=== PATIENT | male | born 1985 | race Caucasian/White ===

== ENCOUNTER 2018-01-30 09:21 | Emergency (ER) | payer BC, SELFPAY ==
[2018-01-30 09:26] VITALS: BP 156/80; PULSE 69; RESP 17; TEMP 35.9; O2SAT 98
[2018-01-30] MEDS: Ketorolac 15 MG/ML VIAL IVP (09:48)
[2018-01-30 09:53] LABS: Bilirubin Negative (Negative); Blood Trace-intact (Negative); Clarity Clear; Glucose Negative (Negative); Ketones Negative (Negative); Leukocyte Esterase Negative (Negative); Nitrite Negative (Negative); Specific Gravity 1.025 (1.005-1.025); Urobilinogen 0.2 EU/dL (Up TO 0.2); pH 5.5 (5-8)
--- NOTE | 2018-01-30 09:55 | ED.GENADUL_ITS ---
Discharge Plan Disposition Patient Disposition: HOME Condition: Stable Discharge Details Chief Complaint: FlankPain Clinical Impression: Renal colic on right side Primary Care Provider: Blaise Abdi ED Provider: Chu Waterman Home Meds and New Rx's Prescriptions: No Action No Known Home Meds RF: 0 Discharge Instructions Instructions: Renal Colic (ED) Additional Instructions: follow up with Dr. Rey's office if you have uncontrolled pain, fevers or persistent vomit return to the emergency department Discharge Data Discharge Physician: Chu Waterman Medical Decision Making MDM Narrative Medical decision making narrative: 32 yo male with hx of kidney stones comes in with right flank pain that started this morning. He states last week he passed a stone and was having pain on the left side but has not had pain since. He denies vomit, fevers, difficulty urinating or abdominal pain. He has no tenderness in the abdomen on exam. I suspect he has a kidney stone, will treat his pain and obtain UA, will try to avoid ct given he has known kidney stones. No fevers and appears well systemically so doubt sepsis or pyelo pt states pain is now gone and feels comfortable being d/c'd. I advised f/u with urology and return precautions given. I offered prescription for oxycodone and zofran but he declined this Differential Diagnosis kidney stone, muscle spasm Lab Data Lab results reviewed: Yes I reviewed the patient's lab results. HPI General Mode of arrival: ambulatory . Date/Time Provider Initiated Documentation: 01/30/18 09:38 . Limitations to Documentation: no limitations . Information obtained by: patient . History of Present Illness 32 year old M presents to the emergency department with the chief complaint of right flank pain, described as moderate, with intensity rated at 6. Quality is described as stabbing, and is localized to the back. Patient reports no radiation. Patient started experiencing this hour(s) (3) and it has been constant. No relieving factors improve symptom(s), No exacerbating factors reported . Patient notes other (nausea). Patient did receive the following treatments prior to arrival, none Related Data Home Medications Medication Instructions Recorded Confirmed Unknown [No Known Home Meds] 01/30/18 01/30/18 Allergies Allergy/AdvReac Type Severity Reaction Status Date / Time No Known Allergies Allergy Unverified 12/10/16 15:11 General Stated Complaint: FlankPain ELVIE: 3 Review of Systems Review of Systems All systems reviewed & are unremarkable except as noted in HPI and below Constitutional Denies chills, Denies fever(s) and Denies weakness Eyes Patient Denies loss of vision ENT Denies change in voice Cardiovascular Denies chest pain and Denies dyspnea Respiratory Denies dyspnea Gastrointestinal Denies abdominal pain and Denies nausea Genitourinary Denies dysuria Musculoskeletal Denies joint swelling Integumentary/Breasts Denies rash Neurologic Denies loss of vision and Denies weakness Psychiatric Denies depression Endocrine Denies cold intolerance and Denies heat intolerance Allergic/Immunologic Reports urticaria PFSH Social History Smoking/Tobacco Use Status: Never Exam Const General: no acute distress Orientation: alert HENMT Head: normal to inspection Ears: external ears normal General nose exam: external nose normal Mouth: moist mucous membranes Eyes General: appearance normal, both eyes and all related structures Neck Neck: normal visual inspection Resp Effort & Inspection: normal respiratory effort and able to speak in complete sentences Cardio Rate: regular rate Back/Spine/Pelvis Back: no CVA tenderness Thoracic/Lumbar Spine: thoracic and lumbar spine normal to inspection and other (no tenderness) Skin General skin exam: no rashes or lesions noted Neuro General: alert and oriented x3 Extrem General: normal to inspection Psych Mental Status: mental status grossly normal Course Vital Signs Temperature 35.9 C L 01/30/18 09:26 Pulse 69 01/30/18 09:26 Respiratory Rate 17 01/30/18 09:26 Blood Pressure 156/80 H 01/30/18 09:26 Pulse Oximetry 98 01/30/18 09:26 Temperature 35.9 C L 01/30/18 09:26 Pulse 69 01/30/18 09:26 Respiratory Rate 17 01/30/18 09:26 Blood Pressure 156/80 H 01/30/18 09:26 Pulse Oximetry 98 01/30/18 09:26
[2018-01-30] MEDS: MORPHine 10 MG/ML VIAL 4 MG IVP (10:00)
[2018-01-30 10:04] LABS: Bacteria Negative HPF (Negative); C & S Indicated? No; Casts 0-2 Hyaline LPF (Negative); Crystals Negative HPF (Negative); Epithelial Cells Moderate HPF (Negative); Mucus Moderate (Negative); WBC 0-2 HPF (0-5)
[2018-01-30 10:08] LABS: Abs Immature Grans 0.02 k/cumm (0.0-0.09); Absolute Basophil Count 0.03 k/cumm (0.0-0.2); Absolute Eosinophil Count 0.15 k/cumm (0.0-0.7); Absolute Lymphocyte Count 2.18 k/cumm (1.2-3.4); Absolute Monocyte Count 0.57 k/cumm (0.11-0.7); Absolute Neutrophil Count 5.72 k/cumm (1.2-6.7); Basophils % 0.3; Eosinophils % 1.7; HCT 45.6 % (40.0-50.0); HGB 15.1 g/dL (13.5-17.5); Immature Grans % 0.2; Lymphocytes % 25.1; Mean Corp. HGB Concentration 33.1 g/dL (32.0-36.0); Mean Corpuscular Hemoglobin 28.1 pg (27.0-33.0); Mean Corpuscular Volume 84.9 fL (80-95); Mean Platelet Volume 11.7 fL (8.0-11.0); Monocytes % 6.6; Neutrophils % 66.1; Platelet Count 223 x1000/uL (130-400); RBC 5.37 m/cumm (4.50-6.00); RBC Distribution Width 13.8 % (11.8-14.1); White Blood Cell Count 8.67 k/cumm (4.4-10.8)
[2018-01-30 10:16] LABS: ALT 128 U/L (12-78); AST 62 U/L (15-37); Albumin 3.7 g/dL (3.4-5.0); Alkaline Phosphatase 80 U/L (46-116); Anion Gap 8.9 mmol/L (3-11); BUN 18 mg/dL (7-18); Bilirubin, Total 0.5 mg/dL (0.2-1.0); CO2 27.1 mmol/L (21.0-32.0); CREATININE 1.17 mg/dL (0.70-1.30); Calcium 8.6 mg/dL (8.5-10.1); Chloride 104 mmol/L (98-107); Glucose 125 mg/dL (70-100); Potassium 4.4 mmol/L (3.5-5.1); Sodium 140 mmol/L (136-145); Total Protein 7.9 g/dL (6.4-8.2)
== END 2018-01-30 10:43 | disposition home or self-care (01) ==
PROVIDERS: Emergency Provider Emergency Medicine; PCP Physician Assistant Medical
DX: N23 Unspecified renal colic (principal); R10.31 Right lower quadrant pain; Z87.442 Personal history of urinary calculi
CPT/HCPCS: 36415; 80053; 96374; 96375; 99284; 81003; 81015; 85025; J1885; J2270

== ENCOUNTER 2018-04-03 04:06 | Emergency (ER) | payer BC, SELFPAY ==
[2018-04-03 04:10] VITALS: BP 170/108; PULSE 68; RESP 20; TEMP 36.4; O2SAT 98
[2018-04-03 04:19] LABS: Bilirubin Negative (Negative); Blood Small (Negative); Clarity Clear; Glucose Negative (Negative); Ketones Negative (Negative); Leukocyte Esterase Negative (Negative); Nitrite Negative (Negative); Specific Gravity 1.025 (1.005-1.025); Urobilinogen 0.2 EU/dL (Up TO 0.2)
--- NOTE | 2018-04-03 04:20 | W.ED.GENAD ---
Discharge Plan Disposition Patient Disposition: HOME Condition: Good Discharge Details Chief Complaint: FlankPain Clinical Impression: Renal colic on right side Primary Care Provider: Blaise Abdi ED Provider: Flo Xiao Rhodelia Meds and New Rx's Prescriptions: New tamsulosin 0.4 mg capsule 0.4 mg PO DAILY Qty: 14 RF: 0 phenazopyridine 100 mg tablet 100 mg PO TID PRN (Reason: pain) 0 Days RF: 0 ibuprofen 600 mg tablet 600 mg PO QID PRN (Reason: pain) Qty: 20 RF: 0 Discharge Instructions Instructions: Renal Colic (ED) Additional Instructions: Medication as prescribed. Plenty of fluids. Follow-up with Dr. Rey next week. Return to ED for fever, vomiting, worsening pain. Referrals: Brandon Rey MD [ [facility] STAFF PHYSICIAN] - Medical Decision Making Patient here with right-sided flank pain exactly like previous kidney stones. Pain woke him up about an hour ago. He has had previous scans and ultrasounds here. He has never had to have a procedure. At this point we will get a urinalysis to rule out infection. He has no fever. We will symptomatically treat and hold off on labs or imaging for the time being. If he gets better relatively quickly we will simply treat his kidney stone and have him follow-up with Dr. Rey next week if he does not pass the stone. Patient's urine is not infected. He has got good pain relief and is much more comfortable. He does not want narcotics to go home with. Will take Motrin, Flomax, Pyridium and follow-up with Dr. Rey next week. Medical Records Medical records reviewed: Yes I reviewed the patient's medical records. HPI General Mode of arrival: ambulatory. Date/Time Provider Initiated Documentation: 04/03/18 04:14. Limitations to Documentation: no limitations. Information obtained by: patient. HPI Narrative: Patient presents with right flank pain. Patient has history of kidney stones almost always on the right. They have always passed on there own. He has never had procedures. This pain feels exactly the same as previous. Wraps around from the back to the flank to the front. He has no nausea/vomiting. He has no fever. He does have urgency and frequency. Pain just started about an hour ago. Related Data Home Medications Medication Instructions Recorded Confirmed ibuprofen 600 mg PO QID PRN #20 tab 04/03/18 phenazopyridine 100 mg PO TID PRN 0 Days tab 04/03/18 tamsulosin 0.4 mg PO DAILY #14 cap 04/03/18 Previous Rx's Medication Instructions Recorded ibuprofen 600 mg PO QID PRN #20 tab 04/03/18 phenazopyridine 100 mg PO TID PRN 0 Days tab 04/03/18 tamsulosin 0.4 mg PO DAILY #14 cap 04/03/18 Allergies Allergy/AdvReac Type Severity Reaction Status Date / Time No Known Allergies Allergy Unverified 04/03/18 04:17 General Stated Complaint: FlankPain ELVIE: 3 Review of Systems Constitutional Denies chills, Denies fever(s), Denies headache(s) and Denies weakness ENT Denies headache(s) Cardiovascular Denies chest pain, Denies edema, Denies leg edema, Denies palpitations and Denies dyspnea Respiratory Denies cough and Denies dyspnea Gastrointestinal Reports abdominal pain, Denies diarrhea, Denies nausea and Denies vomiting Genitourinary Denies hematuria, Denies dysuria, Reports flank pain, Denies scrotal swelling, Denies testicular pain, Reports urinary frequency and Reports urinary urgency Musculoskeletal Denies abnormal gait, Reports back pain and Denies numbness Integumentary/Breasts Denies rash Neurologic Denies abnormal speech, Denies abnormal gait, Denies confusion, Denies headache(s), Denies focal weakness, Denies numbness and Denies weakness Psychiatric Denies confusion Endocrine Denies palpitations Exam Const General: cooperative, uncomfortable and in distress Orientation: alert and oriented x3 [facility] Head: normocephalic and atraumatic Neck Neck: normal visual inspection, trachea midline and supple Resp Effort & Inspection: normal respiratory effort GI Palpation: soft, not firm, no guarding and nontender Back/Spine/Pelvis Back: no CVA tenderness Skin General skin exam: other (warm and dry) Neuro General: alert, oriented x3, gait normal, no focal motor deficits and CN's II-XI intact bilaterally Course Vital Signs Temperature 97.5 F L 04/03/18 04:10 Pulse 68 04/03/18 04:10 Respiratory Rate 20 04/03/18 04:10 Blood Pressure 170/108 H 04/03/18 04:10 Pulse Oximetry 98 04/03/18 04:10 Temperature 97.5 F L 04/03/18 04:10 Pulse 68 04/03/18 04:10 Respiratory Rate 20 04/03/18 04:10 Respiratory Effort Non-Labored 04/03/18 04:17 Blood Pressure 170/108 H 04/03/18 04:10 Pulse Oximetry 98 04/03/18 04:10 Oxygen Delivery Method Room Air 04/03/18 04:10 Oxygen Flow Rate 0 04/03/18 04:10 Pain Level 9 04/03/18 04:18
[2018-04-03 04:29] LABS: Bacteria Negative HPF (Negative); C & S Indicated? No; Casts Negative LPF (Negative); Crystals Negative HPF (Negative); Epithelial Cells Few HPF (Negative); Mucus Negative (Negative); WBC 0-2 HPF (0-5)
[2018-04-03] MEDS: Phenazopyridine 100 MG TAB PO (04:33)
[2018-04-03] MEDS: Tamsulosin 0.4 MG CAPCR PO (04:33)
[2018-04-03] MEDS: Ketorolac 30 MG/ML VIAL IM (04:34)
[2018-04-03] MEDS: HYDROmorphone 2 MG/ML VIAL 0.5 MG IM (04:34)
--- NOTE | 2018-04-03 04:36 | ED.GENADUL_ITS ---
Discharge Plan Disposition Patient Disposition: HOME Condition: Good Discharge Details Chief Complaint: FlankPain Clinical Impression: Renal colic on right side Primary Care Provider: Blaise Abdi ED Provider: Flo Xiao [place] Meds and New Rx's Prescriptions: New tamsulosin 0.4 mg capsule 0.4 mg PO DAILY Qty: 14 RF: 0 phenazopyridine 100 mg tablet 100 mg PO TID PRN (Reason: pain) 0 Days RF: 0 ibuprofen 600 mg tablet 600 mg PO QID PRN (Reason: pain) Qty: 20 RF: 0 Discharge Instructions Instructions: Renal Colic (ED) Additional Instructions: Medication as prescribed. Plenty of fluids. Follow-up with Dr. Rey next week. Return to ED for fever, vomiting, worsening pain. Referrals: Brandon Rey MD [ [facility] STAFF PHYSICIAN] - Medical Decision Making Patient here with right-sided flank pain exactly like previous kidney stones. Pain woke him up about an hour ago. He has had previous scans and ultrasounds here. He has never had to have a procedure. At this point we will get a urinalysis to rule out infection. He has no fever. We will symptomatically treat and hold off on labs or imaging for the time being. If he gets better relatively quickly we will simply treat his kidney stone and have him follow-up with Dr. Rey next week if he does not pass the stone. Patient's urine is not infected. He has got good pain relief and is much more comfortable. He does not want narcotics to go home with. Will take Motrin, Flomax, Pyridium and follow-up with Dr. Rey next week. Medical Records Medical records reviewed: Yes I reviewed the patient's medical records. HPI General Mode of arrival: ambulatory . Date/Time Provider Initiated Documentation: 04/03/18 04:14 . Limitations to Documentation: no limitations . Information obtained by: patient . HPI Narrative: Patient presents with right flank pain. Patient has history of kidney stones almost always on the right. They have always passed on there own. He has never had procedures. This pain feels exactly the same as previous. Wraps around from the back to the flank to the front. He has no nausea/vomiting. He has no fever. He does have urgency and frequency. Pain just started about an hour ago. Related Data Home Medications Medication Instructions Recorded Confirmed ibuprofen 600 mg PO QID PRN #20 tab 04/03/18 phenazopyridine 100 mg PO TID PRN 0 Days tab 04/03/18 tamsulosin 0.4 mg PO DAILY #14 cap 04/03/18 Previous Rx's Medication Instructions Recorded ibuprofen 600 mg PO QID PRN #20 tab 04/03/18 phenazopyridine 100 mg PO TID PRN 0 Days tab 04/03/18 tamsulosin 0.4 mg PO DAILY #14 cap 04/03/18 Allergies Allergy/AdvReac Type Severity Reaction Status Date / Time No Known Allergies Allergy Unverified 04/03/18 04:17 General Stated Complaint: FlankPain ELVIE: 3 Review of Systems Constitutional Denies chills, Denies fever(s), Denies headache(s) and Denies weakness ENT Denies headache(s) Cardiovascular Denies chest pain, Denies edema, Denies leg edema, Denies palpitations and Denies dyspnea Respiratory Denies cough and Denies dyspnea Gastrointestinal Reports abdominal pain, Denies diarrhea, Denies nausea and Denies vomiting Genitourinary Denies hematuria, Denies dysuria, Reports flank pain, Denies scrotal swelling, Denies testicular pain, Reports urinary frequency and Reports urinary urgency Musculoskeletal Denies abnormal gait, Reports back pain and Denies numbness Integumentary/Breasts Denies rash Neurologic Denies abnormal speech, Denies abnormal gait, Denies confusion, Denies headache( s), Denies focal weakness, Denies numbness and Denies weakness Psychiatric Denies confusion Endocrine Denies palpitations Exam Const General: cooperative, uncomfortable and in distress Orientation: alert and oriented x3 [facility] Head: normocephalic and atraumatic Neck Neck: normal visual inspection, trachea midline and supple Resp Effort & Inspection: normal respiratory effort GI Palpation: soft, not firm, no guarding and nontender Back/Spine/Pelvis Back: no CVA tenderness Skin General skin exam: other (warm and dry) Neuro General: alert, oriented x3, gait normal, no focal motor deficits and CN's II- XI intact bilaterally Course Vital Signs Temperature 97.5 F L 04/03/18 04:10 Pulse 68 04/03/18 04:10 Respiratory Rate 20 04/03/18 04:10 Blood Pressure 170/108 H 04/03/18 04:10 Pulse Oximetry 98 04/03/18 04:10 Temperature 97.5 F L 04/03/18 04:10 Pulse 68 04/03/18 04:10 Respiratory Rate 20 04/03/18 04:10 Respiratory Effort Non-Labored 04/03/18 04:17 Blood Pressure 170/108 H 04/03/18 04:10 Pulse Oximetry 98 04/03/18 04:10 Oxygen Delivery Method Room Air 04/03/18 04:10 Oxygen Flow Rate 0 04/03/18 04:10 Pain Level 9 04/03/18 04:18
[2018-04-03 05:42] VITALS: BP 114/66; PULSE 68; RESP 18; TEMP 36.7; O2SAT 98
== END 2018-04-03 05:42 | disposition home or self-care (01) ==
PROVIDERS: Emergency Provider Emergency Medicine; PCP Physician Assistant Medical
DX: N23 Unspecified renal colic (principal); Z87.442 Personal history of urinary calculi
CPT/HCPCS: 96372; 99284; 81003; 81015; J1885

== ENCOUNTER 2018-05-09 08:55 | Emergency (ER) | payer BC, SELFPAY ==
[2018-05-09 09:02] VITALS: BP 120/74; PULSE 92; RESP 16; TEMP 37.3; O2SAT 93
--- NOTE | 2018-05-09 09:12 | DI.RAD_ITS ---
SYMPTOM/DIAGNOSIS: COUGH PA AND LATERAL CHEST: The heart is normal in size. The lungs are clear. The mediastinal structures and pleura appear intact. CONCLUSION: Normal chest. No evidence of acute cardiopulmonary disease.
--- NOTE | 2018-05-09 09:17 | ED.GENADUL_ITS ---
Discharge Plan Disposition Patient Disposition: HOME Condition: Good Discharge Details Chief Complaint: Fever Clinical Impression: Influenza, Transaminitis Primary Care Provider: Blaise Abdi ED Provider: Fabio Mejia Home Meds and New Rx's Prescriptions: New oseltamivir 75 mg capsule 75 mg PO BID 5 Days Qty: 10 RF: 0 No Action ibuprofen 600 mg tablet 600 mg PO QID PRN (Reason: pain) Qty: 20 RF: 0 diphenhydramine-acetaminophen [Tylenol PM Extra Strength] 25-500 mg Tablet 1 tab PO HS RF: 0 Discharge Instructions Instructions: Influenza (ED) Additional Instructions: Please follow-up with your primary care provider for reevaluation of your elevated liver function tests. If you notice any worsening of your symptoms, or any new symptoms such as vomiting, diarrhea, fever, chills, shortness of breath, chest pain, numbness, weakness, or fainting , please return immediately to the emergency department for reevaluation. Please follow up with your primary care provider as soon as possible for reassessment and reevaluation. As always, it was a pleasure participating in your medical care today. Referrals: Blaise Abdi PA [Primary Care Provider] - Medical Decision Making This is a 32-year-old male with no significant past medical history who presents today with 2 days of fever, chills, cough, mild nausea vomiting and diarrhea. He has no red flags for the diarrhea. Abdominal exam demonstrates no abdominal tenderness. Lung sounds are clear. Patient is mildly tachycardic, but afebrile here. We will rehydrate the patient, evaluate for influenza. We will give Toradol and Decadron. I feel that the patient would be a good candidate for discharge home following workup if it is benign. 9:51 AM Patient's laboratory workup has resulted and is mainly benign. No evidence of an elevated white count, no significant bandemia. Influenza is positive which definitely correlates well with his current clinical picture. The patient's AST and ALT are also slightly elevated. Review of the patient's previous labs demonstrate elevation in the past but not this high before. With no significant abdominal pain, no right upper quadrant pain, normal bilirubin, I do feel that it may be the viral component of his influenza that is influencing his mild transaminitis. We will recommend close follow-up with his PCP for this. Avoiding alcohol, and avoiding acetaminophen. We will give him his first dose of Tamiflu here since his presentation has been within 48 hours of initial symptom onset. We discussed red flags which to return the patient understands. I have extensively reviewed the treatment plan and discharge instructions with the patient. I have addressed all patient concerns at this time. The patient was made aware of what symptoms to monitor for that would warrant a return to the emergency department. Discussed the plan with the patient, they demonstrate verbal understanding and agreement with our assessment and plan at this time. I did review the chest x-ray and I see no evidence of acute pneumonia. HPI General Date/Time Provider Initiated Documentation: 05/09/18 09:11 . HPI Narrative: This is a 32-year-old male who presents today for evaluation of cough, fever, chills, nausea, vomiting and diarrhea. Patient states that for the last 2 days he has had these symptoms. His vomiting is usually posttussive. He denies any chest pain or shortness of breath. He does not smoke. The cough is nonproductive. T-max is 103 yesterday. He has not taken any antipyretics since 7 PM last night. He denies any bloody diarrhea, recent foreign travel, recent antibiotic use. Patient denies any other complaints at this time. He is a non-smoker. Related Data Home Medications Medication Instructions Recorded Confirmed ibuprofen 600 mg PO QID PRN #20 tab 04/03/18 05/09/18 diphenhydramine-acetaminophen 1 tab PO HS 05/09/18 05/09/18 [Tylenol PM Extra Strength] oseltamivir 75 mg PO BID 5 Days #10 cap 05/09/18 Previous Rx's Medication Instructions Recorded ibuprofen 600 mg PO QID PRN #20 tab 04/03/18 oseltamivir 75 mg PO BID 5 Days #10 cap 05/09/18 Allergies Allergy/AdvReac Type Severity Reaction Status Date / Time No Known Allergies Allergy Unverified 05/09/18 09:07 General Stated Complaint: Fever ELVIE: 3 Review of Systems Review of Systems All systems reviewed & are unremarkable except as noted in HPI and below PFSH Social History Smoking/Tobacco Use Status: Never Exam Narrative Exam Narrative: 1.Const: Well-nourished, Well-developed, appearing stated age 2.Eyes: PERRL, no conjunctival injection, and symmetrical lids. 3.ENT: Atraumatic external nose and ears. Moist MM. Neck: Symmetric, trachea midline, No thyromegaly. 4.CVS: +S1/S2, No murmurs or gallops. Peripheral pulses 2+ and equal in all extremities. Brisk capillary refill in all extremities. 5.RESP: Unlabored respiratory effort. Clear to auscultation bilaterally. No wheezes rales or rhonchi 6.GI: Soft, Nontender/Nondistended, No hepatosplenomegaly. No guarding or rebound. 7.MSK: Normocephalic/Atraumatic, Extremities w/o deformity or ttp No cyanosis or clubbing, Normal movement of all extremities 8.Skin: Warm, Dry. No rashes or lesions. 9.Neuro: investigation division lieutenant II-XII grossly intact. Sensation grossly intact, no focal neurologic deficits. 10.Psych: (AAO) x3. Appropriate mood and affect Course Vital Signs Temperature 37.3 C 05/09/18 09:02 Pulse 92 H 05/09/18 09:02 Respiratory Rate 16 05/09/18 09:02 Blood Pressure 120/74 05/09/18 09:02 Pulse Oximetry 93 L 05/09/18 09:02 Temperature 37.3 C 05/09/18 09:02 Temperature Source Oral 05/09/18 09:02 Pulse 92 H 05/09/18 09:02 Respiratory Rate 16 05/09/18 09:02 Respiratory Effort 05/09/18 09:06 Blood Pressure 120/74 05/09/18 09:02 Blood Pressure Position Supine 05/09/18 09:02 Pulse Oximetry 93 L 05/09/18 09:02 Oxygen Delivery Method Room Air 05/09/18 09:02 Oxygen Flow Rate 0 05/09/18 09:02 Pain Level 6 05/09/18 09:02
[2018-05-09 09:25] LABS: Abs Immature Grans 0.01 k/cumm (0.0-0.09); Absolute Basophil Count 0.01 k/cumm (0.0-0.2); Absolute Eosinophil Count 0.01 k/cumm (0.0-0.7); Absolute Lymphocyte Count 1.07 k/cumm (1.2-3.4); Absolute Monocyte Count 1.04 k/cumm (0.11-0.7); Absolute Neutrophil Count 1.69 k/cumm (1.2-6.7); Basophils % 0.3; Eosinophils % 0.3; HCT 44.3 % (40.0-50.0); HGB 14.6 g/dL (13.5-17.5); Immature Grans % 0.3; Lymphocytes % 27.9; Mean Corpuscular Hemoglobin 28.3 pg (27.0-33.0); Mean Corpuscular Volume 85.9 fL (80-95); Mean Platelet Volume 11.2 fL (8.0-11.0); Monocytes % 27.2; Platelet Count 161 x1000/uL (130-400); RBC 5.16 m/cumm (4.50-6.00); RBC Distribution Width 14.4 % (11.8-14.1); White Blood Cell Count 3.83 k/cumm (4.4-10.8)
[2018-05-09] MEDS: Ketorolac 30 MG/ML VIAL IVP (09:25)
[2018-05-09] MEDS: Normal Saline 1,000 ML 1000 ML IV (09:26)
[2018-05-09] MEDS: Dexamethasone 10 MG/ML VIAL IVP (09:26)
[2018-05-09 09:42] LABS: ALT 266 U/L (12-78); AST 199 U/L (15-37); Albumin 3.3 g/dL (3.4-5.0); Alkaline Phosphatase 60 U/L (46-116); Anion Gap 5.9 mmol/L (3-11); BUN 16 mg/dL (7-18); Bilirubin, Total 0.4 mg/dL (0.2-1.0); CO2 29.1 mmol/L (21.0-32.0); CREATININE 1.12 mg/dL (0.70-1.30); Calcium 9.5 mg/dL (8.5-10.1); Chloride 101 mmol/L (98-107); Glucose 116 mg/dL (70-100); Potassium 3.9 mmol/L (3.5-5.1); Sodium 136 mmol/L (136-145); Total Protein 7.6 g/dL (6.4-8.2)
[2018-05-09] MEDS: Oseltamivir 75 MG CAP PO (09:49)
--- NOTE | 2018-05-09 10:20 | NUR.NOTE ---
patient IV dc'd, received discharge and dfollow up nstruction per MD order. Nursing Note:
== END 2018-05-09 10:22 | disposition home or self-care (01) ==
LOC: ER 10:26
PROVIDERS: Emergency Provider Student in an Organized Health Care Education/Training Program; PCP Physician Assistant Medical
DX: J10.1 Influenza due to other identified influenza virus with other respiratory manifestations (principal); R94.5 Abnormal results of liver function studies
CPT/HCPCS: 36415; 80053; 87449; 96361; 96374; 96375; 99284; 71046; 85025; 99283; J1100; J1885

== ENCOUNTER 2018-11-18 22:55 | Outpatient (REF) | payer BC, SELFPAY ==
[2018-11-18 22:38] LABS: ALT 101 U/L (12-78); AST 57 U/L (15-37); Albumin 3.7 g/dL (3.4-5.0); Alkaline Phosphatase 75 U/L (46-116); Bilirubin, Total 0.4 mg/dL (0.2-1.0); Total Protein 7.3 g/dL (6.4-8.2)
[2018-11-18 22:40] LABS: Hemoglobin A1C 6.7 % (4.5-6.2)
== END 2018-11-18 23:15 ==
LOC: NCHCN 22:55
PROVIDERS: PCP Physician Assistant Medical; Visit Provider Physician Assistant Medical
DX: R79.89 Other specified abnormal findings of blood chemistry (principal)
CPT/HCPCS: 80076; 83036

== ENCOUNTER 2019-05-03 08:23 | Observation (INO) | payer BC, SELFPAY ==
[2019-05-03] VITALS (60 sets, daily range): BP systolic 100–165; BP diastolic 64–124; PULSE 52–115; RESP 17–22; TEMP 36.2–36.5; O2SAT 89–98
--- NOTE | 2019-05-03 08:27 | ED.GENADUL_ITS ---
Discharge Plan Disposition Patient Disposition: HOME Condition: Good Discharge Details Chief Complaint: FlankPain Clinical Impression: Kidney stone, Pancreas cyst Primary Care Provider: Blaise Abdi ED Provider: Fabio Mejia Home Meds and New Rx's Prescriptions: New hydrocodone-acetaminophen [[place]] 10-325 mg tablet 1 tab PO Q6H PRN (Reason: pain) Qty: 14 RF: 0 No Action ibuprofen 600 mg tablet 600 mg PO QID PRN (Reason: pain) Qty: 20 RF: 0 diphenhydramine-acetaminophen [Tylenol PM Extra Strength] 25-500 mg Tablet 1 tab PO HS RF: 0 Discharge Instructions Instructions: Kidney Stones (ED) Additional Instructions: You have a 3.7 mm kidney stone. It is in the top part of the urine tube/ureter. It will likely take some time to pass. Please take the pain medications as needed. They have some Tylenol in them, so do not take them with Tylenol. Otherwise I would recommend taking 600 mg of ibuprofen every 6 hours and 1000 mg of Tylenol every 6 hours aside for when you take the [place]. If your symptoms persist and do not improve or resolve over the next few days, please return immediately as you may require a ureteral stent. Please follow-up closely with your primary care provider as well as Dr. Rey. At this time you are not a candidate for Flomax secondary to the position of the kidney stone. If you notice any worsening of your symptoms, or any new symptoms such as vomiting, diarrhea, fever, chills, shortness of breath, chest pain, numbness, weakness, or fainting , please return immediately to the emergency department for reevaluation. Please follow up with your primary care provider as soon as possible for reassessment and reevaluation. As always, it was a pleasure participating in your medical care today. Referrals: Brandon Rey MD [ [facility] STAFF PHYSICIAN] - Blaise Abdi PA [Primary Care Provider] - Medical Decision Making This is a pleasant 33-year-old male with a past medical history of kidney stones who presents today for evaluation of left flank pain that started last night which he states feels identical to previous kidney stones. Genital exam was unremarkable, vital signs are stable. He did have a slight atypical component where his pain did initially radiate to the right lower quadrant of the abdomen, however this is since resolved and he currently demonstrates no right lower quadrant abdominal tenderness at all. Signs and symptoms are inconsistent with acute appendicitis. Will get a CT scan to evaluate position and size of potential stone pathology, urinalysis to evaluate for infection, basic blood work to rule out acute kidney injury. We will rehydrate and treat his pain. 9:[address] scan has returned and demonstrates evidence of kidney stone at the proximal ureter. There is evidence of mild hydronephrosis. Kidney stone is only 3.7 mm. There is also evidence of a cystic structure in the body of the pancreas I did contact radiology and spoke with Dr. Medina, I did request that she review previous imaging, she has since done that and she states that it was present then as well but it was slightly smaller, only 1.3 cm at that time. Unlikely to be a neoplasm, especially with the chronicity of it with the last CT scan demonstrating it 2 years ago. However I will place it on his problem list, will copy his PCP, and recommend follow-up for potential MRI versus outpatient ultrasound. We will get a screening lipase. Patient does have mild transaminitis, however this is notably status quo with him, especially in comparison with multiple previous transaminases in the past. Pain is improving but certainly not controlled at this point. We will add Dilaudid, continue to monitor. If his pain resolves I feel he can be safely discharged with close follow-up. If his pain is not tolerable even after continued medications he may require brief 1224-hour observation for pain control. 10:21 AM Patient's pain is well controlled. Patient is requesting to go home. I do feel that this is certainly reasonable. Screening lipase was normal. Recommended continued close follow-up with his primary care provider about his pancreatic pseudocyst. We will give [place] for home use in addition to NSAIDs. Recommended not taking Tylenol with [place]. Discussed red flags which to return as well as importance of close follow-up. He will be going home with his mother. I have extensively reviewed the treatment plan and discharge instructions with the patient. I have addressed all patient concerns at this time. The patient was made aware of what symptoms to monitor for that would warrant a return to the emergency department. Discussed the plan with the patient, they demonstrate verbal understanding and agreement with our assessment and plan at this time. FINDINGS: Liver: Hepatic steatosis Gallbladder and bile ducts: Normal. No calcified stones. No ductal dilation. Pancreas: Cystic structure in the body of the pancreas 1.68 by 1.74 cm. Three Hounsfield units. Consistent with pancreatic cyst. Differential includes pancreatic pseudocyst and pancreatic cystic neoplasm. Spleen: Normal. No splenomegaly. Adrenals: Normal. No mass. Kidneys and ureters: 3.3 x 3.7 millimeter proximal LEFT ureteral calculus causes minimal dilatation of LEFT collecting system and LEFT ureter. The LEFT kidney is edematous. 2 cm right renal cyst Nonobstructing renal calculi bilaterally. Stomach and bowel: Unremarkable. No obstruction. No mucosal thickening. Appendix: No evidence of appendicitis. Intraperitoneal space: Unremarkable. No free air. No significant fluid collection. Vasculature: Unremarkable. No abdominal aortic aneurysm. Lymph nodes: Unremarkable. No enlarged lymph nodes. Bladder: Unremarkable as visualized. Reproductive: Unremarkable as visualized. Bones/joints: Unremarkable. No acute fracture. Soft tissues: Unremarkable. IMPRESSION: 1. 3.3 x 3.7 millimeter proximal LEFT ureteral calculus causes minimal dilatation of LEFT collecting system and LEFT ureter. The LEFT kidney is edematous. 2. Cystic structure in the body of the pancreas 1.68 by 1.74 cm. Three Hounsfield units. Consistent with pancreatic cyst. Differential includes pancreatic pseudocyst and pancreatic cystic neoplasm. 3. Nonobstructing renal calculi bilaterally. Thank you for allowing us to participate in the care of your patient. Dictated and Authenticated by: Wild Bennett MD 05/03/2019 9:18 AM Eastern Time ([place] & [place]) HPI General Date/Time Provider Initiated Documentation: 05/03/19 08:23 . HPI Narrative: This is a 33-year-old male with a past medical history of kidney stones who presents today for evaluation of left flank pain. Patient states that last night he had what he describes as a sudden sharp pain in his left flank that went down to the left lower and right lower groin. Throughout the evening this transition to just the left flank pain. Currently he has no lower abdominal pain, no groin pain, no scrotal pain. Or testicular pain. He does admit to dark or bloody urine this morning when he woke up. He states that his symptoms feel identical to his previous kidney stones in the past. He has not taken anything for the pain at this time. He denies any nausea vomiting or diarrhea. He denies any fever or chills. He denies any other complaints at this time. No other modifying factors. No history of AAA. He does still have his appendix. Related Data Home Medications Medication Instructions Recorded Confirmed ibuprofen 600 mg PO QID PRN #20 tab 04/03/18 05/03/19 diphenhydramine-acetaminophen 1 tab PO HS 05/09/18 05/03/19 [Tylenol PM Extra Strength] hydrocodone-acetaminophen [[place]] 1 tab PO Q6H PRN #14 tab 05/03/19 Previous Rx's Medication Instructions Recorded ibuprofen 600 mg PO QID PRN #20 tab 04/03/18 hydrocodone-acetaminophen [[place]] 1 tab PO Q6H PRN #14 tab 05/03/19 Allergies Allergy/AdvReac Type Severity Reaction Status Date / Time No Known Allergies Allergy Unverified 05/03/19 08:32 General ELVIE: 3 Review of Systems All systems reviewed & are unremarkable except as noted in HPI and below PFSH Social History Smoking/Tobacco Use Status: Never Alcohol Intake: current Alcohol Intake frequency: a few times a month Drug use: Never Substance use type: does not use Do you feel safe at home: Yes Do you feel safe in your relationship?: Yes Exam Narrative Exam Narrative: 1.Const: Well-nourished, Well-developed, appearing stated age 2.Eyes: PERRL, no conjunctival injection, and symmetrical lids. 3.ENT: Atraumatic external nose and ears. Moist MM. Neck: Symmetric, trachea midline, No thyromegaly. 4.CVS: +S1/S2, No murmurs or gallops. Peripheral pulses 2+ and equal in all extremities. Brisk capillary refill in all extremities. 5.RESP: Unlabored respiratory effort. Clear to auscultation bilaterally. No wheezes rales or rhonchi 6.GI: Soft, Nontender/Nondistended, No hepatosplenomegaly. No guarding or rebound. No pain or tenderness in the right or left lower abdominal quadrants. 7.MSK: Normocephalic/Atraumatic, Extremities w/o deformity or ttp No cyanosis or clubbing, Normal movement of all extremities. Mild subjective left flank tenderness not worsened or reproducible with palpation or percussion. Genital exam was performed with nurse at bedside, normal scrotal exam, normal nontender testicles bilaterally, normal circumcised penis. No abnormalities or bloody discharge. Normal cremasteric reflex. 8.Skin: Warm, Dry. No rashes or lesions. 9.Neuro: engineer technical staff II-XII grossly intact. Sensation grossly intact, no focal neurologic deficits. 10.Psych: (AAO) x3. Appropriate mood and affect
[2019-05-03 08:31] LABS: Bilirubin Negative (Negative); Blood Large (Negative); Clarity Sl Cloudy (Clear); Glucose Negative (Negative); Ketones Negative (Negative); Leukocyte Esterase Negative (Negative); Nitrite Negative (Negative); Specific Gravity 1.025 (1.005-1.025); Urobilinogen 0.2 EU/dL (Up TO 0.2); pH 5.5 (5-8)
[2019-05-03] MEDS: Ondansetron 4 MG/2 ML VIAL IVP ×2 (08:36→17:10)
[2019-05-03] MEDS: Ketorolac 30 MG/ML VIAL IVP ×3 (08:36→21:57)
[2019-05-03] MEDS: Acetaminophen 500 MG TAB 1000 MG PO (08:37)
[2019-05-03] MEDS: Normal Saline 1,000 ML 1000 ML IV (08:37)
[2019-05-03 08:46] LABS: Bacteria Many HPF (Negative); RBC >50 HPF (0-2)
[2019-05-03 08:47] LABS: C & S Indicated? Yes
[2019-05-03 08:48] LABS: Abs Immature Grans 0.03 k/cumm (0.0-0.09); Absolute Basophil Count 0.03 k/cumm (0.0-0.2); Absolute Eosinophil Count 0.31 k/cumm (0.0-0.7); Absolute Lymphocyte Count 2.65 k/cumm (1.2-3.4); Absolute Monocyte Count 0.73 k/cumm (0.11-0.7); Basophils % 0.3; Eosinophils % 3.5; HCT 44.7 % (40.0-50.0); HGB 14.5 g/dL (13.5-17.5); Immature Grans % 0.3; Lymphocytes % 29.6; Mean Corp. HGB Concentration 32.4 g/dL (32.0-36.0); Mean Corpuscular Hemoglobin 27.6 pg (27.0-33.0); Mean Corpuscular Volume 85.1 fL (80-95); Mean Platelet Volume 11.4 fL (8.0-11.0); Monocytes % 8.2; Neutrophils % 58.1; Platelet Count 245 x1000/uL (130-400); RBC 5.25 m/cumm (4.50-6.00); RBC Distribution Width 14.1 % (11.8-14.1); White Blood Cell Count 8.95 k/cumm (4.4-10.8)
--- NOTE | 2019-05-03 08:52 | DI.CT_ITS ---
EXAM: CT RENAL COLIC WO CLINICAL HISTORY: FLANK PAIN. TECHNIQUE: Imaging Protocol: Axial computed tomography images with coronal and sagittal reformatted images were created and reviewed. CONTRAST MATERIAL: Intravenous: Omnipaque 350 Contrast volume:0 mL contrast route:IV - Oral: No COMPARISON: RENAL COLIC WO CONTRAST from 12/09/2016 FINDINGS: ABDOMEN: Lung Bases: Normal where visualized. Liver: There is diffuse decreased attenuation of the liver consistent with hepatic steatosis. No errol surable mass. Gallbladder and biliary tract: No radiodense calculus or dilation. Pancreas: Normal density, no abnormal calcifications or inflammatory process. There has been interval increase in size of the cystic lesion in the body of the pancreas. It now measures 1.9 centimeters compared with 1.1 centimeters on the prior examination. Spleen: Normal. Kidneys: Normal size, contour and axis. There are bilateral nonobstructing renal stones. There is a 4 millimeter stone in the proximal left ureter causing mild hydronephrosis. There are bilateral ira l cysts. The right renal cyst has decreased in size measuring 2.0 centimeters on the current examina tion. No masses seen. Adrenal glands: No masses seen. Abdominal Aorta: Abdominal portion non-dilated. PELVIS: Bladder: Symmetric distention, no gross wall thickening. Bowel: No obstruction or bowel wall thickening. There is no evidence of acute appendicitis. Peritoneal cavity: No ascites, collection or mesenteric inflammatory response. Bones: Within normal limits. Lymph nodes: Unremarkable. IMPRESSION: 1. 4 millimeter proximal left ureteral calculus causing mild hydronephrosis. 2. Bilateral nephrolithiasis 3. Interval increase in size of the pancreatic cystic structure since 12/09/2016. Follow-up as clini michaela appropriate. DATA REPOSITORY: All CT scans at this facility are submitted to the National Radiology Data Registry (NRDR) Dose Index Registry (DIR) with the [employer] (ACR). RADIATION OPTIMIZATION: All CT scans at this facility use at least one of these dose optimization te chniques: automated exposure control; mA and/or kV adjustment per patient size (includes targeted exa ms where dose is matched to clinical indication); or iterative reconstruction.
[2019-05-03 09:01] LABS: ALT 111 U/L (16-63); AST 49 U/L (15-37); Albumin 3.5 g/dL (3.4-5.0); Alkaline Phosphatase 76 U/L (46-116); Anion Gap 7.4 mmol/L (3-11); BUN 12 mg/dL (7-18); Bilirubin, Total 0.4 mg/dL (0.2-1.0); CO2 27.6 mmol/L (21.0-32.0); CREATININE 0.92 mg/dL (0.70-1.30); Calcium 8.7 mg/dL (8.5-10.1); Chloride 106 mmol/L (98-107); Glucose 115 mg/dL (74-106); Potassium 4.2 mmol/L (3.5-5.1); Sodium 141 mmol/L (136-145); Total Protein 7.7 g/dL (6.4-8.2)
--- NOTE | 2019-05-03 09:18 | DI.VRAD_ITS ---
Addendum created by Wild Bennett MD on 05/03/2019 9:30:50 AM EST Addendum: Comparison is made to previous study December 09 2016. There was a cystic structure in the pancreas at that time. It measured 1.3 cm Initial report created on 05/03/2019 9:18:18 AM EST PROCEDURE INFORMATION: Exam: CT Abdomen And Pelvis Without Contrast Exam date and time: 05/03/2019 8:49 AM Age: 33 years old Clinical indication: Abdominal pain; Other: Unspecified; Patient HX: Flank pain, HX kidney stones TECHNIQUE: Imaging protocol: Computed tomography of the abdomen and pelvis without contrast. Radiation optimization: All CT scans at this facility use at least one of these dose optimization techniques: automated exposure control; mA and/or kV adjustment per patient size (includes targeted exams where dose is matched to clinical indication); or iterative reconstruction. COMPARISON: CT RENAL COLIC WO CONTRAST 12/09/2016 10:49 AM FINDINGS: Liver: Hepatic steatosis Gallbladder and bile ducts: Normal. No calcified stones. No ductal dilation. Pancreas: Cystic structure in the body of the pancreas 1.68 by 1.74 cm. Three Hounsfield units. Consistent with pancreatic cyst. Differential includes pancreatic pseudocyst and pancreatic cystic neoplasm. Spleen: Normal. No splenomegaly. Adrenals: Normal. No mass. Kidneys and ureters: 3.3 x 3.7 millimeter proximal LEFT ureteral calculus causes minimal dilatation of LEFT collecting system and LEFT ureter. The LEFT kidney is edematous. 2 cm right renal cyst Nonobstructing renal calculi bilaterally. Stomach and bowel: Unremarkable. No obstruction. No mucosal thickening. Appendix: No evidence of appendicitis. Intraperitoneal space: Unremarkable. No free air. No significant fluid collection. Vasculature: Unremarkable. No abdominal aortic aneurysm. Lymph nodes: Unremarkable. No enlarged lymph nodes. Bladder: Unremarkable as visualized. Reproductive: Unremarkable as visualized. Bones/joints: Unremarkable. No acute fracture. Soft tissues: Unremarkable. IMPRESSION: 1. 3.3 x 3.7 millimeter proximal LEFT ureteral calculus causes minimal dilatation of LEFT collecting system and LEFT ureter. The LEFT kidney is edematous. 2. Cystic structure in the body of the pancreas 1.68 by 1.74 cm. Three Hounsfield units. Consistent with pancreatic cyst. Differential includes pancreatic pseudocyst and pancreatic cystic neoplasm. 3. Nonobstructing renal calculi bilaterally. Dictated and Authenticated by: Wild Bennett MD. Ordering:SOLOMON Mccarthy MD
[2019-05-03] MEDS: HYDROmorphone 2 MG/ML VIAL 1 MG IVP ×4 (09:24→17:52)
[2019-05-03 09:56] LABS: Lipase 122 U/L (73-393)
[2019-05-03] MEDS: Normal Saline 50 ML 200 ML (10:26)
[2019-05-03] MEDS: Normal Saline Flush 10 ML SYR IVP ×2 (10:27→17:53)
[2019-05-03] MEDS: Ondansetron 4 MG/2 ML VIAL (10:46)
[2019-05-03] MEDS: Normal Saline 50 ML (13:03)
[2019-05-03] MEDS: Normal Saline 1,000 ML 175 ML IV ×2 (13:53→19:34)
--- NOTE | 2019-05-03 14:22 | HPE_ITS ---
Date of service: 05/03/19 Time of Service: :22 Assessment and Plan Assessment and plan (1) Nephrolithiasis: Status: Acute Assessment and plan: Based on the size of the stone, the patient should be able to pass it. We will obtain a KUB tomorrow. For now, will treat with aggressive IVF, flomax. If stone has not passed in 72 hours, will seek urology intervention. None is available at [facility] until , so may require transfer. (2) Hypoxia: Status: Acute Assessment and plan: In setting of narcotic use. Will use NSAIDs for pain preferentially, but as will likely still require narcotics, will monitor on continuous pulse ox/capnography and provide o2. Monitor for respiratory suppression. (3) DVT prophylaxis: Status: Acute Assessment and plan: Not required in an ambulatory 33 year old male (4) Discharge planning issues: Status: Acute Assessment and plan: Full code History of Present Illness History of Present Illness Chief Complaint: left flank pain Narrative: Mr Bird is a 33 year old male with PMHx of nephrolithiasis, never previously requiring surgery, as well as h/o pancreatic cyst with a prior negative outpatient workup, and obesity with BMI of 41, who presented to [facility] ED today complaining of left flank pain. He first had a shooting pain from left flank across his abdomen yesterday that had resolved on its own. This morning, he knew he had a kidney stone when he got the flank pain. ER workup confirmed a 3.3 by 3.7 mm proximal left ureteral calculus with mild dilatation of L collecting system, L ureter, and an edematous left kidney. UA revealed hematuria, but no evidence of a UTI. Case was discussed by the ED provider Dr Mejia with [facility], who recommended NSAIDS, IVF and, if the stone does not pass in 72 hour s, a cystoscopy with stent placement. The patient denies fevers at home but does get waves of nausea and heat from the pain. His pain has been difficult to control in the ED, and nursing notes that his O2 sats dip into high 80's on room air with IV dilaudid injections. The patient states he has never had workup for sleep apnea and does snore. Review of Systems Narrative: 12 systems reviewed. Pertinent positives and negatives are as per HPI. Patient reports nausea since receiving narcotic medication and very minimal UOP today. [facility] Medical History (Updated 05/03/19 @ 14:42 by Merry Connor MD) Kidney stones (Acute) Obesity, morbid, BMI 40.0-49.9 (Acute) Pancreatic cyst (Acute) Surgical History (Updated 05/03/19 @ 14:28 by Merry Connor MD) No pertinent past surgical history (Acute) Family History (Updated 05/03/19 @ 14:35 by Merry Connor MD) Father Heart disease Hypertension Maternal Grandfather Stroke Mother Diabetes Paternal Uncle Cancer lung cancer - smoker Social History Smoking/Tobacco Use Status: Never Alcohol Intake: current Alcohol Intake frequency: a few times a month Drug use: Never Substance use type: does not use Do you feel safe at home: Yes Do you feel safe in your relationship?: Yes Meds Home Medications and Allergies Home Medications Medication Instructions Recorded Confirmed Type ibuprofen 600 mg PO QID PRN #20 tab 04/03/18 05/03/19 Rx Allergies Allergy/AdvReac Type Severity Reaction Status Date / Time No Known Allergies Allergy Unverified 05/03/19 08:32 Exam Narrative Exam Narrative: General: Very pleasant obese male, appears mildly uncomfortable laying flat in a stretcher Neurological: A&OX3, no focal deficits Psychiatric: appropriate speech pattern/content Skin: visible skin intact HEENT: Atraumatic, normocephalic, EOMI, dry MM, clear oropharynx, large neck diameter, no submandibular or cervical lymphadenopathy, no goiter or JVD Cardiovascular: RRR, no m/r/g Lungs: CTAB Gastrointestinal: abdomen soft, nontender, nondistended; L flank tenderness Extremities: no e/c/c BLE's Results Imaging Additional studies: renal protocol CT: 1. 3.3 x 3.7 millimeter proximal LEFT ureteral calculus causes minimal dilatation of LEFT collecting system and LEFT ureter. The LEFT kidney is edematous. 2. Cystic structure in the body of the pancreas 1.68 by 1.74 cm. Three Hounsfield units. Consistent with pancreatic cyst. Differential includes pancreatic pseudocyst and pancreatic cystic neoplasm. 3. Nonobstructing renal calculi bilaterally. Labs Result diagrams: 05/03/19 08:35 05/03/19 08:35 Labs: Laboratory Results - last 24 hr 05/03/19 05/03/19 05/03/19 08:26 08:35 08:35 WBC 8.95 RBC 5.25 Hgb 14.5 Hct 44.7 MCV 85.1 MCH 27.6 MCHC 32.4 RDW 14.1 Plt Count 245 MPV 11.4 H Immature Gran % 0.3 Neutrophils % 58.1 Lymphocytes % 29.6 Monocytes % 8.2 Eosinophils % 3.5 Basophils % 0.3 Absolute Neutrophils 5.20 Absolute Lymphocytes 2.65 Absolute Monocytes 0.73 H Absolute Eosinophils 0.31 Absolute Basophils 0.03 Sodium 141 Potassium 4.2 Chloride 106 Carbon Dioxide 27.6 Anion Gap 7.4 BUN 12 Creatinine 0.92 Estimated GFR/1.73 m2 >= 60.00 Glucose 115 H Calcium 8.7 Total Bilirubin 0.4 AST 49 H ALT 111 H Alkaline Phosphatase 76 Total Protein 7.7 Albumin 3.5 Lipase Urine Color Dark yellow Urine Clarity Sl cloudy Urine pH 5.5 Ur Specific [place] 1.025 Urine Protein Negative Urine Ketones Negative Urine Blood Large H Urine Nitrite Negative Urine Bilirubin Negative Urine Urobilinogen 0.2 Ur Leukocyte Esterase Negative Urine RBC >50 H Urine WBC Not Applicable Ur Epithelial Cells Not Applicable Urine Crystals Not Applicable Urine Bacteria Many Urine Mucus Not Applicable Ur Culture Indicated? Yes Urine Glucose Negative 05/03/19 08:55 WBC RBC Hgb Hct MCV MCH MCHC RDW Plt Count MPV Immature Gran % Neutrophils % Lymphocytes % Monocytes % Eosinophils % Basophils % Absolute Neutrophils Absolute Lymphocytes Absolute Monocytes Absolute Eosinophils Absolute Basophils Sodium Potassium Chloride Carbon Dioxide Anion Gap BUN Creatinine Estimated GFR/1.73 m2 Glucose Calcium Total Bilirubin AST ALT Alkaline Phosphatase Total Protein Albumin Lipase 122 Urine Color Urine Clarity Urine pH Ur Specific [place] Urine Protein Urine Ketones Urine Blood Urine Nitrite Urine Bilirubin Urine Urobilinogen Ur Leukocyte Esterase Urine RBC Urine WBC Ur Epithelial Cells Urine Crystals Urine Bacteria Urine Mucus Ur Culture Indicated? Urine Glucose Last Vital Signs Temp 36.5 C 05/03/19 14:08 Pulse 67 05/03/19 14:08 Resp 18 05/03/19 14:08 BP 147/81 H 05/03/19 14:08 Pulse Ox 96 05/03/19 14:08
[2019-05-03] MEDS: Acetaminophen 325 MG TAB PO ×2 (14:55→19:44)
[2019-05-03] MEDS: Tamsulosin 0.4 MG CAPCR PO (15:38)
[2019-05-03] MEDS: Normal Saline 50 ML 200 ML IVPB (21:58)
[2019-05-04] VITALS (9 sets, daily range): BP systolic 113–133; BP diastolic 52–76; PULSE 63–83; RESP 17–22; TEMP 36.1–37.3; O2SAT 94–97
[2019-05-04] MEDS: Normal Saline 1,000 ML 175 ML IV ×4 (01:23→20:47)
[2019-05-04] MEDS: Ketorolac 30 MG/ML VIAL IVP ×3 (04:25→22:51)
[2019-05-04] MEDS: Normal Saline 50 ML 200 ML IVPB ×3 (04:25→22:50)
[2019-05-04 06:41] LABS: Abs Immature Grans 0.02 k/cumm (0.0-0.09); Absolute Basophil Count 0.03 k/cumm (0.0-0.2); Absolute Eosinophil Count 0.21 k/cumm (0.0-0.7); Absolute Lymphocyte Count 1.66 k/cumm (1.2-3.4); Absolute Monocyte Count 0.74 k/cumm (0.11-0.7); Absolute Neutrophil Count 6.17 k/cumm (1.2-6.7); Basophils % 0.3; Eosinophils % 2.4; HCT 39.9 % (40.0-50.0); Immature Grans % 0.2; Lymphocytes % 18.8; Mean Corp. HGB Concentration 32.6 g/dL (32.0-36.0); Mean Corpuscular Hemoglobin 28.2 pg (27.0-33.0); Mean Corpuscular Volume 86.6 fL (80-95); Mean Platelet Volume 11.7 fL (8.0-11.0); Monocytes % 8.4; Neutrophils % 69.9; Platelet Count 191 x1000/uL (130-400); RBC 4.61 m/cumm (4.50-6.00); RBC Distribution Width 14.2 % (11.8-14.1); White Blood Cell Count 8.83 k/cumm (4.4-10.8)
[2019-05-04 06:56] LABS: Hemoglobin A1C 6.5 % (4.5-6.2)
[2019-05-04 07:00] LABS: Anion Gap 6.6 mmol/L (3-11); BUN 16 mg/dL (7-18); CO2 25.4 mmol/L (21.0-32.0); CREATININE 1.18 mg/dL (0.70-1.30); Calcium 8.4 mg/dL (8.5-10.1); Chloride 109 mmol/L (98-107); Glucose 151 mg/dL (74-106); Magnesium 2.1 mg/dL (1.8-2.4); Potassium 4.4 mmol/L (3.5-5.1); Sodium 141 mmol/L (136-145)
[2019-05-04] MEDS: Tamsulosin 0.4 MG CAPCR PO (07:35)
[2019-05-04] MEDS: Acetaminophen 325 MG TAB PO ×2 (07:35→20:15)
[2019-05-04] MEDS: Senna TAB 1 TAB PO (07:38)
[2019-05-04] MEDS: Milk of Magnesia 30 ML CUP PO (07:38)
[2019-05-04] MEDS: Docusate Sodium 100 MG CAP PO (07:38)
--- NOTE | 2019-05-04 08:22 | PDOC.CMIN ---
- If Service Date Differs Date of service: 05/04/19 Time of Service: 08:22 Care Management Initial Assess REASON FOR HOSPITALIZATION:: Symptomatic nephrolithiasis. PAST MEDICAL HISTORY/PAST SURGICAL HISTORY:: Medical History: Kidney stones, Obesity, morbid, BMI 40.0-49.9, and. Pancreatic cyst. No pertinent past surgical history. PREVIOUS FUNCTIONAL STATUS/SOCIAL/FAMILY SUPPORTS:: Miquel resides in [place] with his , Justin, their two daughters, and several pets. 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 In his spare time, he enjoys spending time with his children and is part of a [employer] league. His support system consists of his spouse and his mom. Miquel drives and is independent with his ADLs at baseline. CURRENT FUNCTIONAL STATUS:: Miquel is lying in bed visiting with his when CM comes to meet with him. He is pleasant and easily engages in conversation. He talks a bit about his job and his home life. He reports still having some pain and shares he is awaiting the results of x-rays done this morning. He feels ready to return home and is hoping to be discharged soon. ADVANCE DIRECTIVES:: None on file. Has patient been provided with information about the portal?: Yes Did the patient sign up for the portal?: Yes CODE STATUS:: Full Code INSURANCE COVERAGE / FINANCIAL ISSUES:: BC BS CURRENT HOME/COMMUNITY SERVICES/EQUIPMENT:: Miquel does not currently have any home or community services and does not utilize DME. PRIMARY CARE PHYSICIAN:: Blaise Abdi PA-C ([facility]). POTENTIAL DISCHARGE NEEDS:: Follow-up appointment with PCP, urologist and sleep clinic. PATIENT/FAMILY EDUCATION NEEDS:: Discharge plan, limitations, follow-up plan, including Ask Me Three and self-management. ANTICIPATED BARRIERS TO DISCHARGE:: None. TRANSPORTATION:: Miquel' will transport him home via private vehicle when ready. PLAN:: Miquel will be discharged home when medically cleared by provider. Anticipate no additional services needed at time of discharge. Patient's will transport him home via private vehicle upon discharge.
--- NOTE | 2019-05-04 10:57 | DM INPTCON_ITS ---
Date of service: 05/04/19 Time of Service: 10:58 Diabetes Inpatient Consult DESCRIPTION/ASSESSMENT: Appreciate diabetes consult for Miquel Bird, 33 years, who is hospitalized with kidney stones newly diagnosed with type 2 diabetes with A1c 6.5. Miquel acknowledges he does not take care of himself by drinking water to prevent kidney stones and drinks sugared beverages despite his prior pre- diabetes diagnosis. States he eats reasonably well with some occasional indiscretions and portions remain a problem. States he does not carry his lunch and morning is hectic so ends up eating fast food. Reports he has been counselled by professor of environmental science at [facility] but has not followd through with any of those suggestions. INTERVENTION: Discussed A1c diagnostic criteria and early intensive intervention to prevent progression and possibly reverse the diagnosis and he voices understanding. States he knows what he needs to do, just has not been able to follow through. Recognizes this hospitalization as a wake=up call and is aware of his part in prevention. Discussed changes to meal planning to include working toward half his plate as vegetables as a first step. He has been able to give up sweetened beverages in the past and plans to do so again. PLAN: Initiate some of the actions outlined with [facility] Increase vegetables Bring lunch when possible Drink clear, unsweetened beverages only Time Spent in Nutritional Counseling and Treatment: 15 minutes face to face
--- NOTE | 2019-05-04 11:00 | DI.RAD_ITS ---
EXAM: XR ABDOMEN FLAT PLATE INDICATION: f/u kidney stone. COMPARISON: ABDOMEN FLAT PLATE from 03/02/2011 TECHNIQUE: 2D digital imaging was performed. FINDINGS: There is a 3 millimeter calcification to the left of the spine at the L2-L3 level consistent with the patient's known proximal ureteral stone. There does not appear to be significant change in location of the stone compared to the CT scan from the day prior. There is bilateral nephrolithiasis. Bowel gas pattern is nonspecific. No evidence of bowel obstruction. The bones are intact. IMPRESSION: 1. Proximal left ureteral stone. Probably unchanged in location compared to the CT scan from the day prior. 2. Bilateral nephrolithiasis.
--- NOTE | 2019-05-04 13:32 | W.PM.PROGNOT ---
Date of Service Date of service: 05/04/19 Time of Service: 13:32 Assessment and Plan Assessment and plan (1) Nephrolithiasis: Status: Acute Assessment and plan: Discussed results of KUB with radiology - the stone remains in the exact place where it was yesterday. The patient still requires IV pain medications. Will continue to monitor in the hospital on IVF/flomax. Repeat labs in am. (2) Hypoxia: Status: Resolved Assessment and plan: In setting of narcotic use. Will use NSAIDs for pain preferentially. Has continuous pulse ox/capnography ordered if he equires any more narcotics. Supplement O2. may have underlying sleep apnea - consider outpatient sleep stud. (3) Non-insulin dependent type 2 diabetes mellitus: Status: Acute Assessment and plan: The patient apparently knew he had prediabetes. He did not share this information with me yesterday. He received diabetes education. He seems motivated to change. We spoke about lifestyle modifications today. I think, it is appropriate to start him on januvia on discharge. Metformin contraindicated due to hepatic steatosis. (4) Obesity, morbid, BMI 40.0-49.9: Status: Acute Assessment and plan: As above - discussed lifestyle modifications/weight loss. (5) Hepatic steatosis: Status: Acute Assessment and plan: Monitor LFTs as outpatient. Discussed diagnosis with patient - reinforced that weight loss might help. (6) DVT prophylaxis: Status: Acute Assessment and plan: Not required in an ambulatory 33 year old male (7) Discharge planning issues: Status: Acute Assessment and plan: Full code Possible discharge home tomorrow. Subjective Subjective Interval history since last seen: Mr Bird has had spikes of pain in this left flank today, though overall he feels better. He denies dizziness, chest pain, shortness of breath, nausea. There has been gravel in his urine. Per KUB read, he has not yet passed the stone. He last required dilaudid yesterday at around 6 pm. He has required 4 doses of toradol in the last 24 hours. He is not ready to go home - he thinks he might just be right back. Exam Narrative Exam Narrative: General: Very pleasant obese male, in bed, appears relatively comfortable, A&Ox3 HEENT: EOMI, MMM Skin: dry/intact Lungs: nonlabored breathing Gastrointestinal: abdomen soft, nontender, nondistended; L flank tenderness Extremities: no e/c/c BLE's Objective Objective Clinical Data: Abnormal lab results 05/04/19 05/04/19 05/04/19 Range/Units 06:00 06:00 06:00 Hgb 13.0 L (13.5-17.5) g/dL Hct 39.9 L (40.0-50.0) % RDW 14.2 H (11.8-14.1) % MPV 11.7 H (8.0-11.0) fL Absolute Monocytes 0.74 H (0.11-0.7) k/cumm Chloride 109 H (98-107) mmol/L Glucose 151 H (74-106) mg/dL Hemoglobin A1c 6.5 H (4.5-6.2) % Calcium 8.4 L (8.5-10.1) mg/dL Vital Signs Temperature 36.6 C 05/04/19 11:11 Temperature Source Tympanic 05/04/19 11:11 Pulse 77 05/04/19 11:11 Pulse Rhythm Regular 05/04/19 07:30 Respiratory Rate 17 05/04/19 11:11 Respiratory Effort Non-Labored 05/04/19 07:30 Respiratory Depth Normal 05/04/19 07:30 Respiratory Pattern Normal 05/04/19 07:30 Blood Pressure 118/52 L 05/04/19 11:11 Blood Pressure Mean 101 05/03/19 13:31 Blood Pressure Position Sitting 05/03/19 08:26 Pulse Oximetry 97 05/04/19 11:11 Oxygen Delivery Method Room Air 05/04/19 11:11 Oxygen Flow Rate 0 05/04/19 11:11 Pain Level 6 05/04/19 13:05 Comment 05/03/19 08:26 Intake & Output 05/03/19 05/04/19 05/04/19 23:59 11:59 23:59 Intake Total 1284.583 / 2294.583 2550 / 2550 Output Total 600 / 600 850 / 850 Balance 684.583 / 4532.523 4460 / 1700 Weight 140.614 kg 147.1 kg Intake: IV 1044.583 / 2054.583 2049 / 2049 Oral 240 / 240 500 / 500 Output: Urine 600 / 600 850 / 850 Other: Urine Color Yellow Yellow Urine Appearance Clear Clear Sediment Urine Odor Normal None Strain Urine Result Positive-Gravel Seen Negative-No Stones/Gravel Comment mutiple voids pt bladder scanned for 290, voided 200 in urinal. PVR 81 Stool Size Large Stool Characteristics Soft Formed Voiding Methods Urinal Toilet Laboratory Results WBC 8.83 k/cumm (4.4-10.8) 05/04/19 06:00 RBC 4.61 m/cumm (4.50-6.00) 05/04/19 06:00 Hgb 13.0 g/dL (13.5-17.5) L 05/04/19 06:00 Hct 39.9 % (40.0-50.0) L 05/04/19 06:00 MCV 86.6 fL (80-95) 05/04/19 06:00 MCH 28.2 pg (27.0-33.0) 05/04/19 06:00 MCHC 32.6 g/dL (32.0-36.0) 05/04/19 06:00 RDW 14.2 % (11.8-14.1) H 05/04/19 06:00 Plt Count 191 x1000/uL (130-400) 05/04/19 06:00 MPV 11.7 fL (8.0-11.0) H 05/04/19 06:00 Immature Gran % 0.2 05/04/19 06:00 Neutrophils % 69.9 05/04/19 06:00 Lymphocytes % 18.8 05/04/19 06:00 Monocytes % 8.4 05/04/19 06:00 Eosinophils % 2.4 05/04/19 06:00 Basophils % 0.3 05/04/19 06:00 Absolute Neutrophils 6.17 k/cumm (1.2-6.7) 05/04/19 06:00 Absolute Lymphocytes 1.66 k/cumm (1.2-3.4) 05/04/19 06:00 Absolute Monocytes 0.74 k/cumm (0.11-0.7) H 05/04/19 06:00 Absolute Eosinophils 0.21 k/cumm (0.0-0.7) 05/04/19 06:00 Absolute Basophils 0.03 k/cumm (0.0-0.2) 05/04/19 06:00 Sodium 141 mmol/L (136-145) 05/04/19 06:00 Potassium 4.4 mmol/L (3.5-5.1) 05/04/19 06:00 Chloride 109 mmol/L (98-107) H 05/04/19 06:00 Carbon Dioxide 25.4 mmol/L (21.0-32.0) 05/04/19 06:00 Anion Gap 6.6 mmol/L (3-11) 05/04/19 06:00 BUN 16 mg/dL (7-18) 05/04/19 06:00 Creatinine 1.18 mg/dL (0.70-1.30) 05/04/19 06:00 Estimated GFR/1.73 m2 >= 60.00 (mL/min/1.73m2) 05/04/19 06:00 Glucose 151 mg/dL (74-106) H 05/04/19 06:00 Hemoglobin A1c 6.5 % (4.5-6.2) H 05/04/19 06:00 Calcium 8.4 mg/dL (8.5-10.1) L 05/04/19 06:00 Magnesium 2.1 mg/dL (1.8-2.4) 05/04/19 06:00 Total Bilirubin 0.4 mg/dL (0.2-1.0) 05/03/19 08:35 AST 49 U/L (15-37) H 05/03/19 08:35 ALT 111 U/L (16-63) H 05/03/19 08:35 Alkaline Phosphatase 76 U/L (46-116) 05/03/19 08:35 Total Protein 7.7 g/dL (6.4-8.2) 05/03/19 08:35 Albumin 3.5 g/dL (3.4-5.0) 05/03/19 08:35 Lipase 122 U/L (73-393) 05/03/19 08:55 Urine Color Dark yellow (Yellow) 05/03/19 08:26 Urine Clarity Sl cloudy (Clear) 05/03/19 08:26 Urine pH 5.5 (5-8) 05/03/19 08:26 Ur Specific [place] 1.025 (1.005-1.025) 05/03/19 08:26 Urine Protein Negative mg/dL (Negative) 05/03/19 08:26 Urine Ketones Negative mg/dL (Negative) 05/03/19 08:26 Urine Blood Large (Negative) H 05/03/19 08:26 Urine Nitrite Negative (Negative) 05/03/19 08:26 Urine Bilirubin Negative (Negative) 05/03/19 08:26 Urine Urobilinogen 0.2 EU/dL (Up TO 0.2) 05/03/19 08:26 Ur Leukocyte Esterase Negative (Negative) 05/03/19 08:26 Urine RBC >50 HPF (0-2) H 05/03/19 08:26 Urine WBC Not Applicable 05/03/19 08:26 Ur Epithelial Cells Not Applicable 05/03/19 08:26 Urine Crystals Not Applicable 05/03/19 08:26 Urine Bacteria Many HPF (Negative) 05/03/19 08:26 Urine Mucus Not Applicable 05/03/19 08:26 Ur Culture Indicated? Yes 05/03/19 08:26 Urine Glucose Negative mg/dL (Negative) 05/03/19 08:26
--- NOTE | 2019-05-04 14:07 | PHARADMIT ---
Admission Pharmacy Clinical Review SYMPTOMATIC NEPHROLITHIASIS (New Diagnosis Diabetes) Code Status Full Code Current Weight Wgt- 147.1 kg Renally Cleared and Narrow Therapeutic Index Meds CrCl~ 98 mL/min Meds-OK QTc Value / Action Taken NONE BP Control, Fever BP-118/52 Tmax- 36.6C Electrolytes reviewed Na-141 K+4.4 Mag-2.1 DVT Prophylaxis none Opiate Usage / Scheduled Bowel Regimen Ordered Yes Yes Plt/SCr for Heparin / Enoxaparin Plts- SCr-1.18 INR for Warfarin na H/H stable, WBC/Bands H&H- 13.0/39.9 WBC- 8.83 Antibiotic appropriateness none Cultures and Sensitivities Urine-No growth/24hrs Surgical ABX d/c within 24 hr na DM control / Insulin Dosing BG-151 PeU4b-9.5% Heart Failure (Check EF%) (DEBBIE's, B-Block, Diuretics) none IV to PO Switch No Home Meds Reviewed Yes Home Meds Not Ordered Ibuprofen Comments
[2019-05-04] MEDS: HYDROmorphone 2 MG/ML VIAL 1 MG IVP (18:00)
[2019-05-05] VITALS (9 sets, daily range): BP systolic 107–136; BP diastolic 61–88; PULSE 56–75; RESP 16–20; TEMP 36.3–36.8; O2SAT 89–99
[2019-05-05] MEDS: Normal Saline 1,000 ML 175 ML IV ×3 (02:59→14:35)
[2019-05-05] MEDS: Ketorolac 30 MG/ML VIAL IVP ×2 (06:36→14:20)
[2019-05-05] MEDS: Normal Saline 50 ML 200 ML IVPB (06:36)
[2019-05-05] MEDS: Acetaminophen 325 MG TAB PO ×2 (06:37→14:34)
--- NOTE | 2019-05-05 06:41 | NUR.NOTE ---
Nursing Note: At approximately 0630 this nurse was notified the patient was short of breath. This nurse went in to assess the patient, Patient was slightly tachypneic and had some shallow breathing. Vital signs were obtained as documented. Patient states he was feeling better with his breathing but just doesn't feel right. Patient denies any chest pain or pressure. CCRN notified, will continue to monitor.
[2019-05-05 06:56] LABS: Abs Immature Grans 0.01 k/cumm (0.0-0.09); Absolute Basophil Count 0.01 k/cumm (0.0-0.2); Absolute Eosinophil Count 0.22 k/cumm (0.0-0.7); Absolute Lymphocyte Count 1.48 k/cumm (1.2-3.4); Absolute Monocyte Count 0.72 k/cumm (0.11-0.7); Absolute Neutrophil Count 5.86 k/cumm (1.2-6.7); Basophils % 0.1; Eosinophils % 2.7; HGB 12.6 g/dL (13.5-17.5); Immature Grans % 0.1; Lymphocytes % 17.8; Mean Corp. HGB Concentration 32.3 g/dL (32.0-36.0); Mean Corpuscular Hemoglobin 27.8 pg (27.0-33.0); Mean Corpuscular Volume 86.1 fL (80-95); Mean Platelet Volume 11.8 fL (8.0-11.0); Monocytes % 8.7; Neutrophils % 70.6; Platelet Count 204 x1000/uL (130-400); RBC 4.53 m/cumm (4.50-6.00); RBC Distribution Width 14.1 % (11.8-14.1)
[2019-05-05 07:04] LABS: Anion Gap 7.6 mmol/L (3-11); BUN 15 mg/dL (7-18); CO2 24.4 mmol/L (21.0-32.0); CREATININE 1.49 mg/dL (0.70-1.30); Calcium 8.1 mg/dL (8.5-10.1); Chloride 108 mmol/L (98-107); Estimated GFR 53.67 (mL/min/1.73m2); Glucose 122 mg/dL (74-106); Magnesium 2.1 mg/dL (1.8-2.4); Potassium 3.9 mmol/L (3.5-5.1); Sodium 140 mmol/L (136-145)
[2019-05-05] MEDS: Docusate Sodium 100 MG CAP PO (07:39)
[2019-05-05] MEDS: Senna TAB 1 TAB PO (07:39)
[2019-05-05] MEDS: Tamsulosin 0.4 MG CAPCR PO (07:39)
--- NOTE | 2019-05-05 09:07 | DI.US_ITS ---
EXAM: US RENAL CLINICAL HISTORY: nephrolithiasis, worsening kidney function TECHNIQUE: Randolph scale, color and spectral Doppler were used. COMPARISON: RENAL ULTRASOUND(P) from 02/11/2017 CT RENAL COLIC WO from 05/03/2019 FINDINGS: Renal size in cm: Right: 15 left: 13.7 Echogenicity: Normal Hydronephrosis: No Cyst or mass: Bilateral renal cysts. The largest measures 3.5 x 3.8 x 3.3 cm in the inferior pole of the left kidney. Nephrolithiasis: Bilateral calculi. Largest is in the inferior pole of the left kidney and measures 9 mm. Other findings: None Bladder:Normal. Both ureteral jets were visualized. No bladder wall thickening is seen. Prevoid vol:233 cc Postvoid vol:10 cc Prostate: Volume 11 cc IMPRESSION: 1. Bilateral nephrolithiasis. 2. No evidence of hydronephrosis. 3. Bilateral cysts.
--- NOTE | 2019-05-05 09:32 | DI.RAD_ITS ---
EXAM: XR ABDOMEN FLAT PLATE INDICATION: KUB - f/u kidney stone. COMPARISON: XR ABDOMEN FLAT PLATE from 05/04/2019 TECHNIQUE: 2D digital imaging was performed. FINDINGS: The previously noted calcification on the left now lies between the L3 and L4 transverse processes. Bilateral nephrolithiasis is present. There is a moderate amount of stool in the colon. Bones and j oints are grossly unremarkable. IMPRESSION: Slight distal migration of the left ureteral stone. Bilateral nephrolithiasis.
--- NOTE | 2019-05-05 13:56 | W.PM.DS.N ---
Date of service: 05/05/19 Time of Service: 13:56 DS: Diagnosis Discharge Diagnosis (1) Nephrolithiasis: Status: Acute (2) Hypoxia: Status: Resolved (3) Non-insulin dependent type 2 diabetes mellitus: Status: Acute (4) Obesity, morbid, BMI 40.0-49.9: Status: Acute (5) Hepatic steatosis: Status: Acute (6) Hematuria: Status: Acute (7) Constipation: Status: Acute (8) Hydronephrosis, left: Status: Resolved Discharge Plan Disposition Patient Disposition: HOME Condition: Stable Discharge Details Chief Complaint: FlankPain Clinical Impression: Kidney stone, Pancreas cyst Reason For Visit: SYMPTOMATIC NEPHROLITHIASIS Admit Date/Time: 05/03/19 13:06 Admit Provider: Merry Connor Attending Provider: Merry Connor Primary Care Provider: Blaise Abdi ED Provider: Fabio Mejia Hospital Course Hospital Course: Mr Bird is a 33 year old male with PMHx of nephrolithiasis, prediabetes, elevated liver function tests due to hepatosteatosis, obesity with BMI of 43, who was observed on [facility] hospitalist service from 05/03/19 through 05/05/19 for symptomatic nephrolithiasis with severe pain and hematuria. The patient required IV fluids, IV toradol and IV dilaudid for pain control. He was initiated on flomax. The stone is approximately 4 mm and has been traveling through his left ureter, initially causing mild hydronephrosis, which has now resolved with the stone migrating more distally. The patient is less symptomatic now and feels like he can manage his symptoms at home, though he still has some pain. He has an appointment with Dr Rey on 05/08/19. He is being discharged home today with prescriptions for toradol, prn hydrocodone/acetaminophen, flomax, bowel regimen, zofran prn. Based on the observed trend of patient's oxygen saturations dipping into 80's when he is asleep, we feel he might benefit from a referral for a sleep study, which we are placing on discharge. Finally, the patient's A1C on this admission is 6.5 - he, in fact, now has diabetes. He has met with a inclusion paraeducator and is motivated to make lifestyle changes (he specifically talks about cutting out sodas and changing the size of his plate). However, he is now also being initiated on januvia. He is not a candidate for metformin at this time due to his hepatic steatosis. Mr Bird is medically stable for discharge home today with above instructions. Home Meds and New Rx's Prescriptions: New sennosides [Senokot] 8.6 mg Tablet 1 tab PO BID Qty: 60 RF: 0 tamsulosin 0.4 mg Capsule 0.4 mg PO DAILY Qty: 10 RF: 0 docusate sodium [Colace] 100 mg Capsule 100 mg PO BID Qty: 60 RF: 0 ketorolac 10 mg tablet 10 mg PO Q6H PRN PRN (Reason: pain) Qty: 20 RF: 0 hydrocodone-acetaminophen [[place]] 5-325 mg tablet 1 tab PO Q6H PRN (Reason: pain) Qty: 20 RF: 0 Januvia 100 mg tablet 100 mg PO DAILY Qty: 30 RF: 0 ondansetron 4 mg tablet,disintegrating 4 mg PO Q6H PRN (Reason: nausea and vomiting) Qty: 10 RF: 0 bisacodyl [Dulcolax (bisacodyl)] 5 mg tablet,delayed release (DR/EC) 10 mg PO .q72h prn Qty: 10 RF: 0 Discontinued ibuprofen 600 mg tablet 600 mg PO QID PRN (Reason: pain) Qty: 20 RF: 0 Discharge Instructions Instructions: Hydrocodone/Acetaminophen (By mouth), Ketorolac (By mouth), Tamsulosin (By mouth), Kidney Stones (ED) Additional Instructions: Return to the hospital with any uncontrolled pain, fever, chest pain, or shortness of breath. Follow up with your PCP and urology as scheduled. Drink plenty of water. Stop drinking sodas and don't eat from large plates. Goal for weight loss is 1-2 lbs/week. Stand Alone Forms: Nursing Discharge Form Referrals: SLEEP CLINIC,[facility] [OTHER] - Brandon Rey MD [ [facility] STAFF PHYSICIAN] - 06/08/19 11:00 am (Call earlier if needed) Blaise Abdi PA [Primary Care Provider] - 05/08/19 8:45 am Activity:: Activity as Tolerated Equipment/Supplies:: No Equipment Needed Diet:: Normal Diet Discharge Orders Discharge Orders: Discharge Order (Routine); Ordered 05/05/19 Ordered By: Merry Connor DS: Summary Status at Discharge Functional status at discharge: independent ambulation Overall status at discharge: patient is back to baseline Mental Status: mental status grossly normal Speech and Movement: speech and movement normal Mood: congruent mood Affect: normal affect Exam Narrative Exam Narrative: General: Very pleasant obese male, in bed, A&Ox3, appears uncomfortable at the time that I saw him. HEENT: EOMI, MMM Heart: RRR, no m/r/g Lungs: CTAB Gastrointestinal: abdomen soft, nontender, nondistended; L flank tenderness Extremities: no e/c/c BLE's Psych Mental Status: mental status grossly normal Speech and Movement: speech and movement normal Mood: congruent mood Affect: normal affect DS: Data Vitals/I&O Vitals and I&O: Vital Signs Temperature 36.6 C 05/05/19 11:39 Temperature Source Temporal Artery Scan 05/05/19 11:39 Pulse 63 05/05/19 11:39 Pulse Rhythm Regular 05/05/19 07:30 Respiratory Rate 18 05/05/19 11:39 Respiratory Effort Non-Labored 05/05/19 07:30 Respiratory Depth Normal 05/05/19 07:30 Respiratory Pattern Normal 05/05/19 07:30 Blood Pressure 134/80 05/05/19 11:39 Blood Pressure Mean 101 05/03/19 13:31 Blood Pressure Position Sitting 05/03/19 08:26 Pulse Oximetry 95 05/05/19 11:39 Oxygen Delivery Method Room Air 05/05/19 11:39 Oxygen Flow Rate 0 05/05/19 11:39 Pain Level 0 05/05/19 11:39 Comment 05/03/19 08:26 Intake & Output 05/04/19 05/05/19 05/05/19 23:59 11:59 23:59 Intake Total 2912.917 / 5462.917 2520 / 2520 Output Total 1450 / 2300 3400 / 3400 Balance 1462.917 / 3162.917 -880 / -880 Weight 148.1 kg Intake: IV 2312.917 / 4362.917 1820 / 1820 Oral 600 / 1100 700 / 700 Output: Urine 1450 / 2300 3400 / 3400 Other: Urine Color Yellow Yellow Urine Appearance Clear Clear Urine Odor Normal None Strain Urine Result Negative-No Stones/Gravel Negative-No Stones/Gravel Comment pt bladder scanned for 200, voided 150 in urinal. PVR 35 x 2 Voiding Methods Toilet Toilet Data Completed and Pending Completed studies during hospitalization [Text1]: CT abdomen/pelvis 05/03/19: 1. 4 millimeter proximal left ureteral calculus causing mild hydronephrosis. 2. Bilateral nephrolithiasis 3. Interval increase in size of the pancreatic cystic structure since 12/09/2016. Follow-up as clinically appropriate. KUB 05/04/19: 1. Proximal left ureteral stone. Probably unchanged in location compared to the CT scan from the day prior. 2. Bilateral nephrolithiasis. KUB 05/05/19: Slight distal migration of the left ureteral stone. Bilateral nephrolithiasis. US renal 05/05/19: 1. Bilateral nephrolithiasis. 2. No evidence of hydronephrosis. 3. Bilateral cysts. Labs on day of discharge: Labs from last 24 hours 05/05/19 05/05/19 06:20 06:20 WBC 8.30 RBC 4.53 Hgb 12.6 L Hct 39.0 L MCV 86.1 MCH 27.8 MCHC 32.3 RDW 14.1 Plt Count 204 MPV 11.8 H Immature Gran % 0.1 Neutrophils % 70.6 Lymphocytes % 17.8 Monocytes % 8.7 Eosinophils % 2.7 Basophils % 0.1 Absolute Neutrophils 5.86 Absolute Lymphocytes 1.48 Absolute Monocytes 0.72 H Absolute Eosinophils 0.22 Absolute Basophils 0.01 Sodium 140 Potassium 3.9 Chloride 108 H Carbon Dioxide 24.4 Anion Gap 7.6 BUN 15 Creatinine 1.49 H Estimated GFR/1.73 m2 53.67 Glucose 122 H Calcium 8.1 L Magnesium 2.1 PFSH Medical History (Updated 05/05/19 @ 14:24 by Merry Connor MD) Hepatic steatosis (Acute) Kidney stones (Acute) Non-insulin dependent type 2 diabetes mellitus (Acute) Obesity, morbid, BMI 40.0-49.9 (Acute) Pancreatic cyst (Acute) Surgical History (Updated 05/03/19 @ 14:28 by Merry Connor MD) No pertinent past surgical history (Acute) Family History (Updated 05/03/19 @ 14:35 by Merry Connor MD) Father Heart disease Hypertension Maternal Grandfather Stroke Mother Diabetes Paternal Uncle Cancer lung cancer - smoker Social History Smoking/Tobacco Use Status: Never Alcohol Intake: current Alcohol Intake frequency: a few times a month Drug use: Never Substance use type: does not use Do you feel safe at home: Yes Do you feel safe in your relationship?: Yes
[2019-05-05] MEDS: Normal Saline Flush 10 ML SYR IVP (14:23)
[2019-05-05] MEDS: HYDROmorphone 2 MG/ML VIAL 1 MG IVP (14:28)
--- NOTE | 2019-05-05 15:17 | CMPROGNOTE_ITS ---
- If Service Date Differs Date of service: 05/05/19 Time of Service: 15:17 Care Management Progress Note S/O: Miquel is lying in bed watching television when CM comes to meet with him. He reports he was hoping to be home for [place] but his pain is worse today than it was yesterday. He hopes that the pain has worsened because he is passing the stones. CM will continue to follow. A: Miquel is a 33 year old male admitted to [facility] on 05/03/19 for symptomatic nephrolithiasis. P: Miquel will be discharged home when medically cleared by provider. Anticipate follow-up with urology and sleep clinic at time of discharge. His will transport him home via private vehicle when ready. CM will continue to follow.
== END 2019-05-05 17:54 | disposition home or self-care (01) | DRG 694 ==
LOC: ER 13:20 → MS 13:43
PROVIDERS: Admitting Provider Internal Medicine; Emergency Provider Student in an Organized Health Care Education/Training Program; PCP Physician Assistant Medical; Visit Provider Internal Medicine
DX: N13.2 Hydronephrosis with renal and ureteral calculous obstruction (principal); Z68.41 Body mass index [BMI] 40.0-44.9, adult; R09.02 Hypoxemia; E11.9 Type 2 diabetes mellitus without complications; E66.01 Morbid (severe) obesity due to excess calories; K76.0 Fatty (change of) liver, not elsewhere classified; K59.00 Constipation, unspecified; Z71.3 Dietary counseling and surveillance; G47.30 Sleep apnea, unspecified; K86.2 Cyst of pancreas
CPT/HCPCS: 36415; 76770; 80048; 80053; 83690; 96361; 96374; 96375; 96376; 99217; 99219; 99225; 99285; 74018; 74176; 81003; 81015; 83036; 83735; 85025; 87086; 99238; G0378; J1885; J2405

== ENCOUNTER 2019-05-08 19:31 | Outpatient (REF) | payer BC, SELFPAY ==
[2019-05-14 09:39] LABS: Source: Passed Stone
== END 2019-05-08 19:51 ==
LOC: NCHCN 19:31
PROVIDERS: PCP Physician Assistant Medical; Visit Provider Physician Assistant Medical
DX: N20.0 Calculus of kidney (principal)
CPT/HCPCS: 82365

== ENCOUNTER 2019-05-12 14:24 | Outpatient (CLI) | payer BC, SELFPAY ==
--- NOTE | 2019-05-12 14:35 | DI.RAD_ITS ---
EXAM: XR ABDOMEN FLAT PLATE CLINICAL HISTORY: Kidney stone, flank pain, gross hematuria, R31.9, N20.0 TECHNIQUE: COMPARISON: XR ABDOMEN FLAT PLATE from 05/05/2019 FINDINGS: Three views were obtained. There are multiple small calcifications projected over both kidneys. Th e patient reportedly has a history of nephrolithiasis. No other definite urinary tract calcification s seen. IMPRESSION:
== END 2019-05-12 14:44 ==
PROVIDERS: PCP Physician Assistant Medical; Visit Provider Nurse Practitioner Gerontology
DX: N20.0 Calculus of kidney (principal); R31.9 Hematuria, unspecified; Z87.442 Personal history of urinary calculi
CPT/HCPCS: 74018

== ENCOUNTER 2019-05-14 15:54 | Outpatient (CLI) | payer BC, SELFPAY ==
--- NOTE | 2019-05-14 13:45 | DI.US_ITS ---
EXAM: US RENAL CLINICAL HISTORY: left flank pain, R10.9, hx of hydro and kidney stones, N20.0-calculus TECHNIQUE: Ultrasound performed using standard protocol. COMPARISON: US RENAL from 05/05/2019 FINDINGS: Renal ultrasound was performed according to the usual protocol. There is no evidence of hydronephros is. Tiny echogenic foci are seen bilaterally consistent with small renal nonobstructing calculi, 2 i n the left kidney measuring 4-5 millimeters in diameter, and 1 in the right renal midpole also 4-5 mi llimeters in diameter. There is a 34 millimeter in greatest diameter simple cyst of the lower pole of left kidney. Urinary bladder is unremarkable in appearance with ureteral jet seen bilaterally. Pre and postvoid u rinary bladder volume measurements 334 cc and 8 cc respectively. IMPRESSION: Bilateral nonobstructing renal calculi.
== END 2019-05-14 16:14 ==
PROVIDERS: PCP Physician Assistant Medical; Visit Provider Nurse Practitioner Gerontology
DX: R10.32 Left lower quadrant pain (principal); N20.0 Calculus of kidney; N28.1 Cyst of kidney, acquired
CPT/HCPCS: 76770

== ENCOUNTER 2020-03-28 14:48 | Outpatient (REF) | payer BC, SELFPAY ==
[2020-03-31 14:48] LABS: Patient Race White; SARS-CoV-2 RNA Undetected (Undetected); SARS-CoV-2 Specimen Source Nasal
== END 2020-03-28 15:08 ==
LOC: NCHCN 14:48
PROVIDERS: PCP Physician Assistant Medical; Visit Provider Physician Assistant Medical
DX: Z20.828 Contact with and (suspected) exposure to other viral communicable diseases (principal)
CPT/HCPCS: U0003

== ENCOUNTER 2021-10-16 11:12 | Outpatient (REF) | payer BC, SELFPAY | END 2021-10-16 11:13 | disposition home or self-care (01) | LOC: NCHCN 11:12 | PROVIDERS: PCP Physician Assistant Medical; Visit Provider Physician Assistant Medical | DX: R10.30 Lower abdominal pain, unspecified (principal) | CPT/HCPCS: 87086 ==

== ENCOUNTER 2022-08-15 18:49 | Outpatient (REF) | payer BC, SELFPAY ==
[2022-08-15 20:31] LABS: HGB 15.5 g/dL (13.5-17.5); MCH 27.8 pg (27.0-33.0); MCV 84 fL (80-95); MPV 12.3 fL (8.0-11.0); Platelet Count 242 10^3/uL (130-400); RBC 5.58 10^6/uL (4.36-5.78); RDW 13.5 % (11.8-14.1); RDW-SD 41.4 fL; WBC 9.78 10^3/uL (4.4-10.8)
[2022-08-15 20:36] LABS: Hemoglobin A1C 6.4 % (<5.7)
[2022-08-15 20:37] LABS: ALT 84 U/L (16-63); AST 43 U/L (15-37); Albumin 3.8 g/dL (3.4-5.0); Alkaline Phosphatase 65 U/L (46-116); Anion Gap 8.2 mmol/L (3-11); BUN 14 mg/dL (7-18); Bilirubin, Total 0.2 mg/dL (0.2-1.0); CO2 26.8 mmol/L (21.0-32.0); CREATININE 1.1 mg/dL (0.70-1.30); Calcium 9.1 mg/dL (8.5-10.1); Calculated LDL 129 mg/dL (<100); Chloride 107 mmol/L (98-107); Cholesterol 196 mg/dL (<200); Estimated GFR 88.12 (mL/min/1.73m2); Glucose 110 mg/dL (74-106); HDL Cholesterol 35 mg/dL (40-60); Potassium 4.2 mmol/L (3.5-5.1); Sodium 142 mmol/L (136-145); Total Protein 8.1 g/dL (6.4-8.2); Triglyceride 164 mg/dL (<150)
== END 2022-08-15 18:50 | disposition home or self-care (01) ==
LOC: NCHCN 18:49
PROVIDERS: PCP Physician Assistant Medical; Visit Provider Physician Assistant Medical
DX: E11.9 Type 2 diabetes mellitus without complications (principal); K86.2 Cyst of pancreas
CPT/HCPCS: 80053; 80061; 85027; 83036

== ENCOUNTER 2022-09-04 01:08 | Outpatient (CLI) | payer BC, SELFPAY ==
[2022-09-04] MEDS: Barium Sulfate 2% W/V-Berry Smoothie 450 ML BTL 950 ML PO (11:03)
[2022-09-04] MEDS: Normal Saline Flush 10 ML SYR IVP (13:02)
[2022-09-04] MEDS: Normal Saline - Diluent 50 ML VIAL IJ (13:02)
[2022-09-04] MEDS: Omnipaque 350 MG/ML 500 ML BTL-Imaging package IJ (13:03)
--- NOTE | 2022-09-04 13:25 | DI.CT_ITS ---
Exam(s) CT ABDOMEN PELVIS W EXAM: CT ABDOMEN PELVIS W CLINICAL HISTORY: PANCREATIC CYST, K86.2, GROIN PAIN, R10.30 TECHNIQUE: Imaging Protocol: Axial computed tomography images with coronal and sagittal reformatted images were created and reviewed CONTRAST MATERIAL: Intravenous: Omnipaque 350 Contrast volume:100 mL Oral: Yes COMPARISON: CT RENAL COLIC WO CONTRAST from 12/09/[address] RENAL COLIC WO from 05/03/2019 FINDINGS: ABDOMEN: Lung Bases: Normal where visualized. Liver: There is diffuse decreased attenuation of the liver suggesting fatty infiltration. No suspici ous hepatic masses. Portal, Superior Mesenteric, and Splenic Veins: Unremarkable. Gallbladder and Biliary Tract: No radiodense calculus or dilation. Pancreas: Normal density, no abnormal calcifications or inflammatory process. The cyst in the body of the pancreas is less apparent on the current examination but measures 1.3 cm. Spleen: Normal. Adrenals: No masses seen. Kidneys: Normal size, contour and axis. There is bilateral nephrolithiasis. No hydronephrosis. Ther e is stable bilateral renal cysts. The cysts appear simple. No follow-up is recommended. The large st is in the inferior pole of the left kidney and measures 4 cm. Abdominal Aorta: Abdominal portion non-dilated. Bowel: No obstruction or bowel wall thickening. No evidence of appendicitis. Peritoneal Cavity: No ascites, collection or mesenteric inflammatory response. No free air. Lymph Nodes: Within normal limits. Bones: Within normal limits for the patient's age. Soft Tissues: There is a small fat containing umbilical hernia. PELVIS: Bladder: Symmetric distention, no gross wall thickening. Reproductive Organs: Unremarkable as visualized. Lymph Nodes: Within normal limits. Bones: Within normal limits for the patient's age. IMPRESSION: 1. Pancreatic cyst which now measures 1.3 cm. No increase in size of the cysts compared to the prior examinations. 2. No acute abdominal or pelvic process. 3. No evidence of an inguinal mass or hernia. No evidence of inguinal adenopathy. 4. Bilateral nephrolithiasis and stable bilateral renal cysts. No hydronephrosis. 5. Fatty infiltration of the liver. RADIATION DOSE DELIVERED: 1,983.38mGy.cm Total DLP DATA REPOSITORY: All CT scans at this facility are submitted to the National Radiology Data Registry (NRDR) Dose Index Registry (DIR) with the [employer] (ACR). RADIATION OPTIMIZATION: All CT scans at this facility use at least one of these dose optimization te chniques: automated exposure control; mA and/or kV adjustment per patient size (includes targeted exa ms where dose is matched to clinical indication); or iterative reconstruction.
== END 2022-09-04 01:28 ==
LOC: DI 01:08
PROVIDERS: PCP Physician Assistant Medical; Visit Provider Physician Assistant Medical
DX: K86.2 Cyst of pancreas (principal); R10.30 Lower abdominal pain, unspecified
CPT/HCPCS: 74177

== ENCOUNTER 2023-03-13 04:39 | Emergency (ER) | payer BC, SELFPAY ==
[2023-03-13 04:41] VITALS: BP 171/85; PULSE 80; RESP 18; TEMP 36.6; O2SAT 97
[2023-03-13 04:49] VITALS: BP 171/85; PULSE 80; RESP 18; TEMP 36.6; O2SAT 97
[2023-03-13] MEDS: Ketorolac 30 MG/ML VIAL IVP (04:57)
[2023-03-13] MEDS: Normal Saline 1,000 ML 1000 ML IV ×2 (04:58→05:52)
[2023-03-13] MEDS: Ondansetron 4 MG/2 ML VIAL 8 MG IVP (04:58)
--- NOTE | 2023-03-13 04:58 | ED.GENADUL_ITS ---
Discharge Plan Disposition Patient Disposition: Home Condition: Stable Discharge Details Clinical Impression: Kidney stone on left side Primary Care Provider: Blaise Abdi ED Provider: Chantel De Dios Home Meds and New Rx's Prescriptions: New hydrocodone-acetaminophen 5-325 mg tablet 1 tab PO Q4H PRN (Reason: pain) Qty: 20 0RF hydrocodone-acetaminophen 5-325 mg tablet 1 tab PO Q4H PRN (Reason: pain) Qty: 20 0RF Continued Ozempic 0.25 mg or 0.5 mg(2 mg/1.5 mL) pen injector 0.5 mg subcut QWEEK Hold Instructions: GI issues' Discharge Instructions Instructions: Kidney Stones (ED) Additional Instructions: Continue to drink plenty of fluids. Ibuprofen 600 mg every 6 hours as needed for pain. You may take 1-2 Vicodin with this as needed for pain uncontrolled by the ibuprofen. Return to ED for pain uncontrolled with medication, fever of 100.4 or above, protracted vomiting, any other concerns. Medical Decision Making 0500. I discussed CT with the patient. He knows that he has stones in his kidney and I confirmed this by looking back through his studies. He has no history of AAA and is 37 yrs old. We both decided not to irradiate him at this time. He knows that he may need a scan in the near future if the stone is not moving. I suspect that it is up near his kidney at this time as this is where his pain is. We will give him IV fluid and check a urinalysis to assure there is no evidence of infection. He has seen Dr. Rey in the past. 0600. Pt. appears comfortable and sys his pain is a 4/10. UA with concentrated urine so 2nd bag IVF hung. Likely 3 mm stone seen on KUB. D/c to home with pain meds and f/u. He knows what to come back for. Imaging Data Radiologic Study: Radiologist's impression: Patient Name: Miquel Bird Unit #: [id number] Loc: ER Ordering Provider: Status: REG ER Primary Care Provider: Blaise Abdi Date of Exam: 03/13/23 Sex: M : 1985 Age: 37 Exam(s) PROCEDURE INFORMATION: Exam: XR Abdomen Exam date and time: 03/13/2023 5:33 AM Age: 37 years old Clinical indication: Patient HX: L flank pain, eval for stone TECHNIQUE: Imaging protocol: Radiologic exam of the abdomen. Views: Frontal supine view of the abdomen. 1 View. COMPARISON: CT ABDOMEN PELVIS W 09/04/2022 1:16 PM FINDINGS: Gastrointestinal tract: There is a moderate amount of retained fecal material in the cecum, ascending colon, and proximal transverse colon. The downstream colon appears well evacuated. Organs: There are tiny radiodensities projecting over the left renal shadow with the largest measuring 2 mm suspicious for renal calculi. The transverse colon overlies the right renal shadow. Radiodensities project over the lower pole of the right kidney, the largest of which measures 7 mm. Renal calculi are suspected given the appearance on the comparison CT exam; however, radiodense material in the bowel could have a similar appearance. There is also a small round 3 mm calcification projecting between the left L4 and L5 spinous processes. A left ureteral calculus could have this appearance although a calcification outside the urinary tract could produce an identical appearance. Bones/joints: The bony structures appear grossly intact. IMPRESSION: 1. Bilateral renal calculi. 2. Small round 3 mm calcification projecting between the left L4 and L5 spinous processes. A left ureteral calculus could have this appearance; however, a calcification outside the urinary tract could produce an identical appearance. Dictated and Authenticated by: Dhruv Villafana MD. Ordering:SONIDO Golden MD Lab Data Lab results reviewed: Yes I reviewed the patient's lab results. Lab results narrative: Patient's urinalysis shows a specific gravity of greater than or equal to 1.030, large blood with greater than 50 RBCs. The patient has no WBCs, nitrites, or leuk esterase. HPI General Date/Time Provider Initiated Documentation: 03/13/23 04:40 . HPI Narrative: This 37-year-old male patient presents with a chief complaint of left flank pain that awoke him at 3:45 this morning. The pain is sharp and unrelenting in nature. It is similar to his prior stones. He knows that he has additional stones in his kidneys. The patient states that he drank a lot of water at home and attempt to get the stone moving but it has not changed. Nothing makes the pain better or worse. He decided to come in for some pain medication. He has no nausea at this time but says that his stones will frequently make him sick to his stomach. He was given Toradol but morphine is typically what works. He denies vomiting, diarrhea, abdominal pain, fever, or chills. He has no URI symptoms, chest pain, or shortness of breath. He has no dysuria or hematuria. There is no pedal edema or calf pain. He denies rash, headache, sore throat, weakness, or dizziness.` Related Data Home Medications Medication Instructions Recorded Confirmed semaglutide 0.25 mg or 0.5 mg (2 0.5 mg subcut QWEEK 10/16/22 03/13/23 mg/1.5 mL) subcutaneous pen injector (Ozempic) hydrocodone 5 mg-acetaminophen 325 1 tab PO Q4H PRN pain #20 tabs 03/13/23 mg tablet hydrocodone 5 mg-acetaminophen 325 1 tab PO Q4H PRN pain #20 tabs 03/13/23 mg tablet Previous Rx's Medication Instructions Recorded hydrocodone 5 mg-acetaminophen 325 1 tab PO Q4H PRN pain #20 tabs 03/13/23 mg tablet hydrocodone 5 mg-acetaminophen 325 1 tab PO Q4H PRN pain #20 tabs 03/13/23 mg tablet Allergies Allergy/AdvReac Type Severity Reaction Status Date / Time No Known Allergies Allergy Unverified 03/13/23 04:45 General Stated Complaint: FlankPain ELVIE: 3 Review of Systems All systems reviewed & are unremarkable except as noted in HPI and below Constitutional Constitutional: Reports as per HPI, Denies chills, Denies fever(s) and Denies headache(s) Eyes Eyes: Denies blurry vision and Reports other (no redness) ENT Ears, Nose, Mouth, and Throat: Denies dizziness, Denies otalgia, Denies headache(s), Denies nasal congestion, Denies nasal discharge, Denies neck pain and Denies odynophagia Cardiovascular Cardiovascular: Denies chest pain, Denies palpitations and Denies dyspnea Respiratory Respiratory: Denies cough and Denies dyspnea Gastrointestinal Gastrointestinal: Denies abdominal pain, Denies diarrhea, Denies nausea, Denies odynophagia and Denies vomiting Genitourinary Genitourinary: Denies difficulty urinating and Denies dysuria Musculoskeletal Musculoskeletal: Denies myalgias, Denies muscle weakness, Denies neck pain and Denies numbness Integumentary/Breasts Skin/Breast: Denies erythema and Denies rash Neurologic Neurologic: Denies dizziness, Denies headache(s) and Denies numbness Endocrine Endocrine: Denies palpitations PFSH All Active Problems (Updated 03/13/23 @ 05:51 by Chantel De Dios MD) Kidney stone on left side (Acute) Constipation (Acute) Hematuria (Acute) Hepatic steatosis (Acute) Non-insulin dependent type 2 diabetes mellitus (Acute) Discharge planning issues (Acute) DVT prophylaxis (Acute) Obesity, morbid, BMI 40.0-49.9 (Acute) Nephrolithiasis (Acute) Medical History Pancreatic cyst Kidney stones Surgical History No pertinent past surgical history Family History Father Heart disease Hypertension Maternal Grandfather Stroke Mother Diabetes Paternal Uncle Cancer lung cancer - smoker Social History Smoking/Tobacco Use Status: Never Smoking risk assessment performed?: Yes Alcohol Intake: current Alcohol Intake frequency: a few times a month Drug use: Never Substance use type: does not use Do you feel safe at home: Yes Do you feel safe in your relationship?: Yes Exam Const General: well developed, well groomed and acute distress (uncomfortable) Nutritional Appearance: well nourished Orientation: alert and oriented x3 HENMT Head: normocephalic and atraumatic Ears: external ears normal Mouth: oropharynx normal and moist mucous membranes Throat: posterior oropharynx normal Eyes Conjunctivae: conjunctivae normal Neck Neck: full ROM and supple Chest Chest: normal inspection of the chest Resp Effort & Inspection: normal respiratory effort Auscultation: clear to auscultation bilaterally Cardio Rate: regular rate Rhythm: regular rhythm Heart Sounds: no murmurs and no rubs GI Inspection: normal to inspection Palpation: soft, nontender and other (non distended) Auscultation: normal bowel sounds Back/Spine/Pelvis Back: CVA tenderness (L side) Skin General skin exam: no rashes or lesions noted and other (pink, warm, dry) Neuro General: patient alert, patient awake and patient oriented x3 Speech: speech normal Motor: other (COLE) Sensory Exam: no sensory deficits noted Extrem General: normal to inspection, full ROM and pedal edema present Psych Mental Status: mental status grossly normal Speech and Movement: speech and movement normal Affect: normal affect Course Vital Signs Vital signs: Vital Signs Temperature 36.6 C 03/13/23 04:41 Pulse 80 03/13/23 04:41 Respiratory Rate 18 03/13/23 04:41 Blood Pressure 171/85 H 03/13/23 04:41 Pulse Oximetry 97 03/13/23 04:41 Temperature 36.6 C 03/13/23 04:49 Temperature Source Temporal Artery Scan 03/13/23 04:49 Pulse 80 03/13/23 04:49 Respiratory Rate 18 03/13/23 04:49 Respiratory Effort Normal, Non-Labored 03/13/23 04:44 Blood Pressure 171/85 H 03/13/23 04:49 Blood Pressure Position Sitting 03/13/23 04:49 Pulse Oximetry 97 03/13/23 04:49 Oxygen Delivery Method Room Air 03/13/23 04:49 Oxygen Flow Rate 0 03/13/23 04:49 Pain Level 9 03/13/23 04:49
[2023-03-13] MEDS: MORPHine 10 MG/ML VIAL 6 MG IVP (04:59)
--- NOTE | 2023-03-13 05:00 | DI.RAD_ITS ---
Exam(s) XR ABDOMEN FLAT PLATE EXAM: 2D digital imaging was performed. CLINICAL HISTORY: L flank pain, eval for stone. COMPARISON: CT CT ABDOMEN PELVIS W from 09/04/2022 TECHNIQUE: Supine views of the abdomen performed. FINDINGS: BOWEL GAS PATTERN: Nondistended. CALCIFICATIONS: 3 small stones project over the lower pole of the right kidney. Tiny stones also pro ject of the upper and lower poles of the left kidney. There is a 3 millimeter stone seen projecting between the left L3 and L4 transverse processes which may be been the upper ureter or ureteropelvic j unction. No calcification was seen in this region on the previous CT. OSSEOUS STRUCTURES: Normal for age. IMPRESSION: 1. Nonobstructive bowel gas pattern. 2. 3 millimeter stone projecting at the left ureteropelvic junction/upper ureter. DATA REPOSITORY: RADIATION DOSE DELIVERED:
[2023-03-13 05:03] LABS: Bilirubin Negative (Negative); Blood Large (Negative); Clarity Sl Cloudy (Clear); Glucose Negative (Negative); Ketones Negative (Negative); Leukocyte Esterase Negative (Negative); Nitrite Negative (Negative); Specific Gravity >= 1.030 (1.005-1.025); Urobilinogen 0.2 mg/dL (Up to 0.2); pH 5.5 (5-8)
[2023-03-13 05:13] LABS: Bacteria Moderate HPF (Negative); C & S Indicated? Yes; Crystals Negative HPF (Negative); Epithelial Cells Rare HPF (Negative); Mucus Trace (Negative); RBC >50 HPF (0-2); WBC 0-2 HPF (0-5)
--- NOTE | 2023-03-13 05:48 | DI.VRAD_ITS ---
PROCEDURE INFORMATION: Exam: XR Abdomen Exam date and time: 03/13/2023 5:33 AM Age: 37 years old Clinical indication: Patient HX: L flank pain, eval for stone TECHNIQUE: Imaging protocol: Radiologic exam of the abdomen. Views: Frontal supine view of the abdomen. 1 View. COMPARISON: CT ABDOMEN PELVIS W 09/04/2022 1:16 PM FINDINGS: Gastrointestinal tract: There is a moderate amount of retained fecal material in the cecum, ascending colon, and proximal transverse colon. The downstream colon appears well evacuated. Organs: There are tiny radiodensities projecting over the left renal shadow with the largest measuring 2 mm suspicious for renal calculi. The transverse colon overlies the right renal shadow. Radiodensities project over the lower pole of the right kidney, the largest of which measures 7 mm. Renal calculi are suspected given the appearance on the comparison CT exam; however, radiodense material in the bowel could have a similar appearance. There is also a small round 3 mm calcification projecting between the left L4 and L5 spinous processes. A left ureteral calculus could have this appearance although a calcification outside the urinary tract could produce an identical appearance. Bones/joints: The bony structures appear grossly intact. IMPRESSION: 1. Bilateral renal calculi. 2. Small round 3 mm calcification projecting between the left L4 and L5 spinous processes. A left ureteral calculus could have this appearance; however, a calcification outside the urinary tract could produce an identical appearance. Dictated and Authenticated by: Dhruv Villafana MD. Ordering:SONIDO Golden MD
--- NOTE | 2023-03-13 05:53 | NUR.NOTE ---
PT states that his pain has improved and is now a 4/10Nursing Note:
--- NOTE | 2023-03-13 06:00 | NUR.NOTE ---
Referral faxed to [facility] to f/u for kidney stone.Nursing Note:
[2023-03-13] MEDS: HYDROcodone 5/Acetaminophen 325 TAB PO (06:19)
[2023-03-13 06:23] VITALS: BP 118/55; PULSE 68; RESP 18; O2SAT 96
== END 2023-03-13 06:24 | disposition home or self-care (01) ==
PROVIDERS: Emergency Provider Emergency Medicine; PCP Physician Assistant Medical
DX: N20.0 Calculus of kidney; E66.01 Morbid (severe) obesity due to excess calories; Z68.41 Body mass index [BMI] 40.0-44.9, adult
CPT/HCPCS: 96361; 96374; 96375; 99284; 74018; 81003; 81015; 87086; J1885; J2270; J2405

== ENCOUNTER 2023-03-18 13:24 | Outpatient (REF) | payer BC, SELFPAY ==
[2023-03-18 18:31] LABS: Creatinine,Urine 117.44 mg/dL; POTASSIUM,URINE RANDOM 33 mmol/L; Sodium, Urine 171 mmol/L
[2023-03-18 18:32] LABS: CLEAVED CELLS 513 mmol/24h (40-220); Creatinine,24hr Ur 3.52 g/24hr (0.95-2.49); SAMPLE LIPEMIA CHECK 3000 ml; Total Volume 3000 ml
[2023-03-19 18:30] LABS: Chloride Urine 24hr 459 mmol/24hrs (110-250); Timed Urine Volume 3000 mL
[2023-03-19 18:35] LABS: Timed Urine Volume 3000 mL; Urea Nitrogen Random Urine 1097 mg/dL (See Note); Urean Nitrogen Urine 24hr 33 g/24hrs (12-20)
[2023-03-20 09:46] LABS: Phosphorus Urine 86.7 mg/dL (See Note); Phosphorus Urine 24hr 2.6 g/24hrs (0.4-1.3); Timed Urine Volume 3000 mL
[2023-03-20 09:49] LABS: Calcium Urine 14.2 mg/dL (See Note); Calcium Urine 24 hr 426 mg/24hr (100-300); Timed Urine Volume 3000 mL; Uric Acid Urine 57.7 mg/dL (See Note); Uric Acid Urine 24hr 1731 mg/24hrs (250-750)
[2023-03-20 09:58] LABS: Magnesium Random Urine 6.3 mg/dL (See Note); Timed Urine Volume 3000 mL
[2023-03-21 11:16] LABS: Citrate Excretion, 24hr, U 1050 mg/24 h (285 - 1191); Urine Volume 3000 mL
[2023-03-22 10:49] LABS: Oxalate, U 0.42 mmol/24 h (0.11-0.46); Urine Volume 3000 mL
[2023-03-22 12:40] LABS: Timed Urine Volume 3000
== END 2023-03-18 13:25 | disposition home or self-care (01) ==
LOC: LBN 13:24
PROVIDERS: PCP Physician Assistant Medical; Visit Provider Nurse Practitioner Gerontology
DX: N20.0 Calculus of kidney (principal); Z87.442 Personal history of urinary calculi
CPT/HCPCS: 82507; 83735; 81050; 82340; 82436; 82570; 83945; 84105; 84133; 84300; 84540; 84560

== ENCOUNTER 2023-05-12 04:54 | Inpatient (IN) | payer BC, SELFPAY ==
[2023-05-12] VITALS (8 sets, daily range): BP systolic 109–156; BP diastolic 64–89; PULSE 78–100; RESP 13–20; TEMP 35.4–36.8; O2SAT 94–99
--- NOTE | 2023-05-12 05:04 | W.ED.GENAD ---
Discharge Plan Discharge Details Chief Complaint: FlankPain Primary Care Provider: Blaise Abdi ED Provider: Fabio Mejia Home Meds and New Rx's Prescriptions: No Action Ozempic 0.25 mg or 0.5 mg(2 mg/1.5 mL) pen injector 0.5 mg subcut QWEEK Hold Instructions: GI issues' Medical Decision Making 37-year-old male with a past medical history of type 2 diabetes, and kidney stones presents today for right flank pain. He states that it feels similar to his previous stones, pain began at 4 AM this morning. Radiates towards his groin. He denies any genital tenderness. No vomiting or diarrhea. He denies any fever or chills. No other complaints at this time. Exam demonstrates well-appearing male, mild to moderate discomfort, right CVA tenderness. Symptoms appear concerning for kidney stone. Symptoms appear inconsistent with appendicitis, cholecystitis, obstruction, or AAA. We will rehydrate, treat his pain, give Flomax, evaluate for renal dysfunction or infection, monitor closely and reassess. 7:01 AM Laboratory workup has returned, no white count bandemia or left shift. Normal electrolytes, renal function stable. Urinalysis shows no evidence of infection. Patient was initially given Toradol, over Mab and Flomax, he had 0 improvement of his pain with this, and in fact felt that it was worsening. He was then given 4 of morphine which is usually all that is needed for pain control. This also did not help his pain. He was then given 1 mg of Dilaudid which mildly improved his pain. With the increased resistance to medication, I am concerned that this may be a larger potentially obstructing stone compared to normal. We discussed risks and benefits, and we will proceed with CT imaging for further analysis. Patient will be signed out to my colleague for follow-up on CT imaging and reassessment. HPI General Date/Time Provider Initiated Documentation: 05/12/23 04:58. HPI Narrative: 37-year-old male with a past medical history of type 2 diabetes, and kidney stones presents today for right flank pain. He states that it feels similar to his previous stones, pain began at 4 AM this morning. Radiates towards his groin. He denies any genital tenderness. No vomiting or diarrhea. He denies any fever or chills. No other complaints at this time. Related Data Home Medications Medication Instructions Recorded Confirmed semaglutide 0.25 mg or 0.5 mg (2 0.5 mg subcut QWEEK 10/16/22 05/12/23 mg/1.5 mL) subcutaneous pen injector (Ozempic) Allergies Allergy/AdvReac Type Severity Reaction Status Date / Time No Known Allergies Allergy Unverified 05/12/23 05:04 General ELVIE: 3 Review of Systems All systems reviewed & are unremarkable except as noted in HPI and below PFSH All Active Problems Constipation (Acute) Hematuria (Acute) Hepatic steatosis (Acute) Non-insulin dependent type 2 diabetes mellitus (Acute) Discharge planning issues (Acute) DVT prophylaxis (Acute) Obesity, morbid, BMI 40.0-49.9 (Acute) Nephrolithiasis (Acute) Medical History Pancreatic cyst Kidney stones Surgical History No pertinent past surgical history Family History Father Heart disease Hypertension Maternal Grandfather Stroke Mother Diabetes Paternal Uncle Cancer lung cancer - smoker Social History Smoking/Tobacco Use Status: Never Smoking risk assessment performed?: Yes Alcohol Intake: current Alcohol Intake frequency: a few times a month Drug use: Never Substance use type: does not use Housing: house Do you feel safe at home: Yes Do you feel safe in your relationship?: Yes Exam Narrative Exam Narrative: 1.Const: Well-nourished, Well-developed, appearing stated age 2.Eyes: PERRL, no conjunctival injection, and symmetrical lids. 3.ENT: Atraumatic external nose and ears. Moist MM. Neck: Symmetric, trachea midline, No thyromegaly. 4.CVS: +S1/S2, No murmurs or gallops. Peripheral pulses 2+ and equal in all extremities. Brisk capillary refill in all extremities. 5.RESP: Unlabored respiratory effort. Clear to auscultation bilaterally. No wheezes rales or rhonchi 6.GI: Soft, Nontender/Nondistended, No hepatosplenomegaly. No guarding or rebound. Mild right-sided CVA tenderness. No pain to McBurney's point, negative Stanford sign 7.MSK: Normocephalic/Atraumatic, Extremities w/o deformity or ttp No cyanosis or clubbing, Normal movement of all extremities 8.Skin: Warm, Dry. No rashes or lesions. 9.Neuro: collar setter overlock II-XII grossly intact. Sensation grossly intact, no focal neurologic deficits. 10.Psych: (AAO) x3. Appropriate mood and affect
[2023-05-12] MEDS: ACETAMINOPHEN 1,000 MG/100 ML BTL 400 MG IVPB (05:12)
[2023-05-12] MEDS: Lactated Ringers 1,000 ML 1000 ML IV (05:12)
[2023-05-12] MEDS: Ketorolac 15 MG/ML VIAL IVP (05:12)
[2023-05-12] MEDS: Tamsulosin 0.4 MG CAPCR PO (05:13)
[2023-05-12 05:16] LABS: Abs Immature Grans 0.03 10^3/uL (0.0-0.06); Absolute Basophil Count 0.07 10^3/uL (0.0-0.2); Absolute Eosinophil Count 0.39 10^3/uL (0.0-0.7); Absolute Lymphocyte Count 2.37 10^3/uL (1.2-3.4); Absolute Neutrophil Count 5.99 10^3/uL (1.2-6.7); Basophils % 0.7; HCT 46.9 % (40.0-50.0); HGB 15.4 g/dL (13.5-17.5); Immature Grans % 0.3; Lymphocytes % 24.6; MCH 27.3 pg (27.0-33.0); MCHC 32.8 % (32.0-36.0); MCV 83 fL (80-95); MPV 11.1 fL (8.0-11.0); Monocytes % 8.3; Neutrophils % 62.1; Platelet Count 241 10^3/uL (130-400); RBC 5.65 10^6/uL (4.36-5.78); RDW 13.3 % (11.8-14.1); RDW-SD 40.4 fL; WBC 9.65 10^3/uL (4.4-10.8)
[2023-05-12 05:16] LABS: Bilirubin Negative (Negative); Blood Moderate (Negative); Clarity Clear (Clear); Glucose Negative (Negative); Ketones Negative (Negative); Leukocyte Esterase Negative (Negative); Nitrite Negative (Negative); Specific Gravity 1.025 (1.005-1.025); Urobilinogen 0.2 mg/dL (Up to 0.2); pH 5.5 (5-8)
[2023-05-12 05:25] LABS: Bacteria Rare HPF (Negative); C & S Indicated? No; Casts Negative LPF (Negative); Crystals Negative HPF (Negative); Epithelial Cells Negative HPF (Negative); Mucus Negative (Negative); WBC Negative HPF (0-5)
[2023-05-12 05:30] LABS: ALT 76 U/L (16-63); AST 45 U/L (15-37); Albumin 3.5 g/dL (3.4-5.0); Alkaline Phosphatase 66 U/L (46-116); Anion Gap 7.4 mmol/L (3-11); BUN 12 mg/dL (7-18); Bilirubin, Total 0.8 mg/dL (0.2-1.0); CO2 27.6 mmol/L (21.0-32.0); CREATININE 1.2 mg/dL (0.70-1.30); Calcium 8.6 mg/dL (8.5-10.1); Chloride 103 mmol/L (98-107); Estimated GFR 78.89 (mL/min/1.73m2); Glucose 132 mg/dL (74-106); Potassium 4.1 mmol/L (3.5-5.1); Sodium 138 mmol/L (136-145); Total Protein 7.7 g/dL (6.4-8.2)
[2023-05-12] MEDS: Ondansetron 4 MG/2 ML VIAL IVP ×3 (06:00→11:18)
[2023-05-12] MEDS: HYDROmorphone 2 MG/ML SYR 1 MG IVP ×3 (06:13→11:18)
--- NOTE | 2023-05-12 06:45 | DI.CT_ITS ---
Exam(s) CT ABDOMEN PELVIS WO EXAM: CT ABDOMEN PELVIS WO CLINICAL HISTORY: right flank pain, hx of stones. TECHNIQUE: Imaging Protocol: Axial computed tomography images with coronal and sagittal reformatted images were created and reviewed. Oral: no COMPARISON: CT CT ABDOMEN PELVIS W from 09/04/2022 FINDINGS: Lung Bases: No acute findings. Liver: Severe hepatic steatosis. No measurable mass. Gallbladder and biliary tract: No radiodense calculus or dilation. Pancreas: Normal density, no abnormal calcifications or inflammatory process. Spleen: Normal. Kidneys: 4 millimeter stone proximal right ureter causing mild right hydronephrosis. Scarring upper pole right kidney. Bilateral renal cysts. No follow-up recommended. Additional bilateral nonobstru cting stones. No suspicious masses seen. Adrenal glands: No masses seen. Lymph nodes: Within normal limits. Vasculature: Abdominal aorta non-dilated. Soft tissues: Small fatty containing umbilical hernia. Bladder: No wall thickening. No mass or calculi. Bowel: No obstruction or bowel wall thickening. Peritoneal cavity: No ascites, collection or mesenteric inflammatory response. Reproductive organs: Unremarkable. Bones: Unremarkable for age. IMPRESSION: 4 millimeter stone proximal right ureter causing mild right hydronephrosis. Additional non-obstructi ng stones noted bilaterally. RADIATION DOSE DELIVERED: Total DLP DATA REPOSITORY: All CT scans at this facility are submitted to the National Radiology Data Registry (NRDR) Dose Index Registry (DIR) with the [employer] (ACR). RADIATION OPTIMIZATION: All CT scans at this facility use at least one of these dose optimization te chniques: automated exposure control; mA and/or kV adjustment per patient size (includes targeted exa ms where dose is matched to clinical indication); or iterative reconstruction.
[2023-05-12] MEDS: Normal Saline 1,000 ML 1000 ML IV (07:15)
--- NOTE | 2023-05-12 08:42 | DI.VRAD_ITS ---
PROCEDURE INFORMATION: Exam: CT Abdomen And Pelvis Without Contrast Exam date and time: 05/12/2023 7:23 AM Age: 37 years old Clinical indication: Other: Right flank pain, HX of stones TECHNIQUE: Imaging protocol: Computed tomography of the abdomen and pelvis without contrast. Radiation optimization: All CT scans at this facility use at least one of these dose optimization techniques: automated exposure control; mA and/or kV adjustment per patient size (includes targeted exams where dose is matched to clinical indication); or iterative reconstruction. COMPARISON: CT ABDOMEN PELVIS W 09/04/2022 1:16 PM FINDINGS: Liver: Liver is diffusely hypoattenuating with some sparing along the gallbladder fossa, consistent with steatosis. No focal hepatic lesion. Gallbladder and bile ducts: No calcified stones. No biliary ductal dilation. Pancreas: Known small pancreatic cyst better assessed on prior contrast-enhanced CT. Spleen: Normal. No splenomegaly. Adrenal glands: Normal. No mass. Kidneys and ureters: There is a 4 mm stone in the right mid ureter with mild hydronephrosis. Additional nonobstructing nephroliths bilaterally, largest on the right measures up to 6 mm. Bilateral renal cysts are somewhat better appreciated on prior contrast enhanced CT. Stomach and bowel: Unremarkable. No obstruction. No mucosal thickening. Appendix: No evidence of appendicitis. Intraperitoneal space: Unremarkable. No free air. No significant fluid collection. Vasculature: Unremarkable. No abdominal aortic aneurysm. Lymph nodes: Unremarkable. No enlarged lymph nodes. Urinary bladder: Unremarkable as visualized. Reproductive: Unremarkable as visualized. Bones/joints: Unremarkable. No acute fracture. Soft tissues: Small fat containing periumbilical hernia. IMPRESSION: There is a 4 mm stone in the right mid ureter with mild hydronephrosis. Dictated and Authenticated by: Amy Holland MD. Ordering:SOLOMON Mccarthy MD
--- NOTE | 2023-05-12 09:07 | ED.PROG_ITS ---
Date of service: 05/12/23 Time of Service: 09:07 Medical Decision Making Pt's CT shows 4mm stone with no other findings on CT, pt improved but still doesn't feel comfortable trying to control his pain at home,discussed with Dr. Valdivia who accepts for admission Sign Out Sign Out Data: Sign Out Comment: Right-sided flank pain, 3 mm stone on my personal review of CAT scan. Pending CT results. May require admission for pain control Last updated by Fabio Mejia DO at 05/12/23 07:56 Discharge Plan Disposition Patient Disposition: Admit to [facility] Condition: Stable Discharge Details Chief Complaint: FlankPain Clinical Impression: Nephrolithiasis Primary Care Provider: Blaise Abdi ED Provider: Chu Waterman Home Meds and New Rx's Prescriptions: No Action Ozempic 0.25 mg or 0.5 mg(2 mg/1.5 mL) pen injector 0.5 mg subcut QWEEK Hold Instructions: GI issues'
--- NOTE | 2023-05-12 09:10 | W.PM.HP.N ---
Date of service: 05/12/23 Time of Service: 09:10 Assessment and Plan Assessment and plan (1) Intractable pain: Status: Acute Assessment and plan: - Patient has history of kidney stones which normally does improve with initial dose of IV morphine and p.o. pain regimen at home -However, patient's pain persisted despite usual dose of morphine, as well as IV Dilaudid -Will admit the patient for intractable pain and continue to treat with 1 mg IV Dilaudid every 4 hours -Once pain improves will transition to p.o. pain regimen in anticipation of eventual discharge (2) Nephrolithiasis: Status: Acute Assessment and plan: - Patient has history of multiple kidney stones which normally does improve enough for patient to be discharged home -As noted above, CT shows 4 mm left ureteral stone with mild hydronephrosis -Continue pain regimen as noted above -Recommend continued follow-up with urology at discharge (3) Non-insulin dependent type 2 diabetes mellitus: Status: Acute Assessment and plan: - Patient is on weekly Ozempic which he took a day prior to admission History of Present Illness History of Present Illness Chief Complaint: Right flank pain Narrative: 47-year-old male with past medical history of type 2 diabetes and kidney stones presenting the emergency department with right flank pain. He states that it feels similar to previous stones that he had before but the pain started around 4 AM this morning and radiates towards his groin. He denies any general tenderness, headache, dizziness, nausea or vomiting or diarrhea. In the emergency department patient had normal CBC, CMP labs. UA did not show any signs of infection he was initially given Toradol and Flomax without any improvement of his pain actually stating that it felt worse. He was also given 4 mg of IV morphine which is usually what helps with his pain but did not help with this time. He was ultimately given 2 doses of 1 mg IV Dilaudid which did improve his symptoms. He did get a CT abdomen pelvis which did show a 4 mm stone in the right mid ureter with mild hydronephrosis. Given the patient continued to experience significant pain, emergency room physician paged hospitalist for admission for patient with 4 mm right ureteral stone and intractable pain. Review of Systems All systems reviewed & are unremarkable except as noted in HPI and below PFSH All Active Problems (Updated 05/12/23 @ 09:13 by Ronak Valdivia MD) Intractable pain (Acute) Constipation (Acute) Hematuria (Acute) Hepatic steatosis (Acute) Non-insulin dependent type 2 diabetes mellitus (Acute) Discharge planning issues (Acute) DVT prophylaxis (Acute) Obesity, morbid, BMI 40.0-49.9 (Acute) Nephrolithiasis (Acute) Medical History Pancreatic cyst Kidney stones Surgical History No pertinent past surgical history Family History Father Heart disease Hypertension Maternal Grandfather Stroke Mother Diabetes Paternal Uncle Cancer lung cancer - smoker Social History Smoking/Tobacco Use Status: Never Smoking risk assessment performed?: Yes Alcohol Intake: current Alcohol Intake frequency: a few times a month Drug use: Never Substance use type: does not use Housing: house Do you feel safe at home: Yes Do you feel safe in your relationship?: Yes Meds Allergies and Home Medications Allergies Allergy/AdvReac Type Severity Reaction Status Date / Time No Known Allergies Allergy Unverified 05/12/23 05:04 Home Medications Medication Instructions Recorded Confirmed Type semaglutide 0.25 mg or 0.5 mg (2 0.5 mg subcut QWEEK 10/16/22 05/12/23 History mg/1.5 mL) subcutaneous pen injector (Ozempic) Exam Narrative Exam Narrative: Well-appearing gentleman laying in bed in mild distress due to pain, ANO x 4, heart regular rate rhythm, lungs clear to auscultation bilaterally, moderate amount of right CVA tenderness, abdomen soft, nontender nondistended Results Labs 05/12/23 05:08 05/12/23 05:08 Labs: Laboratory Results - last 24 hr 05/12/23 05/12/23 05:05 05:08 WBC 9.65 RBC 5.65 Hgb 15.4 Hct 46.9 MCV 83 MCH 27.3 MCHC 32.8 RDW 13.3 Plt Count 241 MPV 11.1 H Immature Gran % 0.3 Neutrophils % 62.1 Lymphocytes % 24.6 Monocytes % 8.3 Eosinophils % 4.0 Basophils % 0.7 Nucleated RBC % 0.0 Absolute Neutrophils 5.99 Absolute Lymphocytes 2.37 Absolute Monocytes 0.80 Absolute Eosinophils 0.39 Absolute Basophils 0.07 Sodium 138 Potassium 4.1 Chloride 103 Carbon Dioxide 27.6 Anion Gap 7.4 BUN 12 Creatinine 1.2 Est GFR (CKD-EPI 2020) 78.89 Glucose 132 H Calcium 8.6 Total Bilirubin 0.8 AST 45 H ALT 76 H Alkaline Phosphatase 66 Total Protein 7.7 Albumin 3.5 Urine Color Yellow Urine Clarity Clear Urine pH 5.5 Ur Specific [place] 1.025 Urine Protein Negative Urine Ketones Negative Urine Blood Moderate H Urine Nitrite Negative Urine Bilirubin Negative Urine Urobilinogen 0.2 Ur Leukocyte Esterase Negative Urine RBC 5-10 H Urine WBC Negative Ur Epithelial Cells Negative Urine Crystals Negative Urine Bacteria Rare Urine Casts Negative Urine Mucus Negative Ur Culture Indicated? No Urine Glucose Negative Last Vital Signs Temp 97.3 F L 05/12/23 05:08 Pulse 78 05/12/23 08:02 Resp 13 05/12/23 08:02 BP 135/75 05/12/23 08:02 Pulse Ox 97 05/12/23 08:02 Time Spent Time spent with Patient: >75 minutes Time was spent: preparing to see the patient(eg.review tests), obtaining and/or reviewing separately otained hiistory, ordering medications,tests, procedures, referring, communicating with other health primary care provider, indepentently interpreting results, counseling the patient and care coordination
[2023-05-12] MEDS: Normal Saline Flush 10 ML SYR IVP ×2 (11:19→22:30)
[2023-05-12] MEDS: Acetaminophen 325 MG TAB PO (16:02)
[2023-05-12] MEDS: Ketorolac 30 MG/ML VIAL IVP (17:40)
[2023-05-13 06:14] LABS: HCT 42.7 % (40.0-50.0); HGB 14.1 g/dL (13.5-17.5); MCH 27.8 pg (27.0-33.0); MCV 84 fL (80-95); MPV 11.7 fL (8.0-11.0); Platelet Count 207 10^3/uL (130-400); RBC 5.08 10^6/uL (4.36-5.78); RDW 13.4 % (11.8-14.1); RDW-SD 41.5 fL; WBC 9.41 10^3/uL (4.4-10.8)
[2023-05-13 06:30] LABS: Anion Gap 8.5 mmol/L (3-11); BUN 18 mg/dL (7-18); CO2 25.5 mmol/L (21.0-32.0); CREATININE 1.2 mg/dL (0.70-1.30); Calcium 8.6 mg/dL (8.5-10.1); Chloride 104 mmol/L (98-107); Estimated GFR 78.89 (mL/min/1.73m2); Glucose 123 mg/dL (74-106); Magnesium 2.4 mg/dL (1.8-2.4); Sodium 138 mmol/L (136-145)
[2023-05-13 08:35] VITALS: BP 114/68; PULSE 86; RESP 16; TEMP 36.8; O2SAT 96
[2023-05-13] MEDS: Normal Saline Flush 10 ML SYR IVP (08:39)
--- NOTE | 2023-05-13 08:57 | DSE_ITS ---
Date of service: 05/13/23 Time of Service: 08:58 DS: Diagnosis Discharge Diagnosis (1) Intractable pain: Status: Acute Asessment and Plan: Patient came in with intractable pain due to 4 middle millimeter right ureteral kidney stone. Required multiple doses of IV Dilaudid and antiemetics. However, pain significantly improved and patient appeared to have passed stone. Therefore, it was determined that he was stable for discharge home (2) Nephrolithiasis: Status: Acute (3) Non-insulin dependent type 2 diabetes mellitus: Status: Acute Discharge Plan Disposition Patient Disposition: Home Condition: Good Discharge Details Reason For Visit: Intractable pain Admit Date/Time: 05/12/23 09:10 Admit Provider: Ronak Valdivia Attending Provider: Ronak Valdivia Primary Care Provider: Blaise Abdi Hospital Course Hospital Course: Patient came in with intractable pain due to 4 middle millimeter right ureteral kidney stone. Required multiple doses of IV Dilaudid and antiemetics. However, pain significantly improved and patient appeared to have passed stone. Therefore, it was determined that he was stable for discharge home Home Meds and New Rx's Prescriptions: Continued Ozempic 0.25 mg or 0.5 mg(2 mg/1.5 mL) pen injector 0.5 mg subcut QWEEK Hold Instructions: GI issues' Discharge Instructions Activity:: Activity as Tolerated Equipment/Supplies:: No Equipment Needed Diet:: As Tolerated Discharge Orders Discharge Orders: Discharge Order (Routine); Ordered 05/13/23 Ordered By: Ronak Valdivia DS: Summary Time Spent with Patient providing and/or coordinating discharge services: Greater than 30 minutes Status at Discharge Functional status at discharge: independent ambulation Overall status at discharge: patient is back to baseline Mental Status: mental status grossly normal Speech and Movement: speech and movement normal Mood: congruent mood Affect: normal affect Exam Narrative Exam Narrative: Well-appearing gentleman laying in bed in no acute acute distress, ANO x 4, heart regular rhythm, lungs clear to auscultation bilaterally, abdomen soft, nontender, nondistended, no CVA tender Psych Mental Status: mental status grossly normal Speech and Movement: speech and movement normal Mood: congruent mood Affect: normal affect DS: Data Vitals/I&O Vitals and I&O: Vital Signs Temperature 98.2 F 05/13/23 08:35 Temperature Source Tympanic 05/13/23 08:35 Pulse 86 05/13/23 08:35 Pulse Rhythm Regular 05/13/23 08:35 Respiratory Rate 16 05/13/23 08:35 Respiratory Effort Normal, Non-Labored 05/13/23 08:35 Respiratory Depth Normal 05/13/23 08:35 Respiratory Pattern Normal 05/13/23 08:35 Blood Pressure 114/68 05/13/23 08:35 Blood Pressure Position Sitting 05/12/23 05:02 Pulse Oximetry 96 05/13/23 08:35 Oxygen Delivery Method Room Air 05/13/23 08:35 Oxygen Flow Rate 0 05/13/23 08:35 Pain Level 0 05/13/23 08:35 Comment pt refused. 05/13/23 04:28 Intake & Output 05/12/23 05/13/23 05/13/23 17:59 05:59 17:59 Intake Total 1999.000 / 2000.000 Output Total 900 / 900 Balance 1100.000 / 1100.000 Weight 325 lb 2.909 oz Intake: IV 1999.000 / 1999.000 Output: Urine 900 / 900 Other: Urine Color Pale Yellow Urine Appearance Clear Clear Clear Urine Odor Normal None Comment strained and had sediment in strainer but no stones Voiding Methods Urinal Toilet Data Completed and Pending Labs on day of discharge: Labs from last 24 hours 05/13/23 05:33 WBC 9.41 RBC 5.08 Hgb 14.1 Hct 42.7 MCV 84 MCH 27.8 MCHC 33.0 RDW 13.4 Plt Count 207 MPV 11.7 H Sodium 138 Potassium 4.0 Chloride 104 Carbon Dioxide 25.5 Anion Gap 8.5 BUN 18 Creatinine 1.2 Est GFR (CKD-EPI 2020) 78.89 Glucose 123 H Calcium 8.6 Magnesium 2.4 PFSH All Active Problems (Updated 05/12/23 @ 09:13 by Ronak Valdivia MD) Intractable pain (Acute) Constipation (Acute) Hematuria (Acute) Hepatic steatosis (Acute) Non-insulin dependent type 2 diabetes mellitus (Acute) Discharge planning issues (Acute) DVT prophylaxis (Acute) Obesity, morbid, BMI 40.0-49.9 (Acute) Nephrolithiasis (Acute) Medical History Pancreatic cyst Kidney stones Surgical History No pertinent past surgical history Family History Father Heart disease Hypertension Maternal Grandfather Stroke Mother Diabetes Paternal Uncle Cancer lung cancer - smoker Social History Smoking/Tobacco Use Status: Never Smoking risk assessment performed?: Yes Alcohol Intake: current Alcohol Intake frequency: a few times a month Drug use: Never Substance use type: does not use Housing: house Do you feel safe at home: Yes Do you feel safe in your relationship?: Yes Time Spent with Patient Time Spent with Patient: <45 minutes Time was spent: preparing to see the patient(eg.review tests), obtaining and/or reviewing separately otained hiistory, referring, communicating with other health career placement services counselor, indepentently interpreting results, counseling the patient and care coordination
== END 2023-05-13 10:39 | disposition home or self-care (01) | DRG 694 ==
LOC: ER 09:41 → MS 09:51
PROVIDERS: Student in an Organized Health Care Education/Training Program; Admitting Provider Family Medicine; Emergency Provider Emergency Medicine; PCP Physician Assistant Medical; Visit Provider Family Medicine
DX: N13.2 Hydronephrosis with renal and ureteral calculous obstruction (principal); Z68.41 Body mass index [BMI] 40.0-44.9, adult; K76.0 Fatty (change of) liver, not elsewhere classified; E66.01 Morbid (severe) obesity due to excess calories; K59.00 Constipation, unspecified
CPT/HCPCS: 00123; 36415; 80048; 80053; 85027; 96361; 96365; 96375; 96376; 99285; 74176; 81003; 81015; 83735; 85025; 99223; 99239; J0131; J1170; J1885; J2405

== ENCOUNTER 2023-12-30 15:24 | Outpatient (REF) | payer BC, SELFPAY ==
[2023-12-30 20:47] LABS: Abs Immature Grans 0.01 10^3/uL (0.0-0.06); Absolute Basophil Count 0.02 10^3/uL (0.0-0.2); Absolute Eosinophil Count 0.19 10^3/uL (0.0-0.7); Absolute Lymphocyte Count 2.12 10^3/uL (1.2-3.4); Absolute Monocyte Count 0.33 10^3/uL (0.1-0.8); Absolute Neutrophil Count 3.52 10^3/uL (1.2-6.7); Basophils % 0.3 %; Eosinophils % 3.1 %; HCT 47.5 % (40.0-50.0); HGB 15.3 g/dL (13.5-17.5); Immature Grans % 0.2 %; Lymphocytes % 34.2 %; MCH 27.8 pg (27.0-33.0); MCHC 32.2 % (32.0-36.0); MCV 86 fL (80-95); MPV 12.2 fL (8.0-11.0); Monocytes % 5.3 %; Neutrophils % 56.9 %; Platelet Count 223 10^3/uL (130-400); RBC 5.51 10^6/uL (4.36-5.78); RDW 13.4 % (11.8-14.1); RDW-SD 42.5 fL; WBC 6.19 10^3/uL (4.4-10.8)
[2023-12-30 21:06] LABS: Hemoglobin A1C 5.9 % (<5.7)
[2023-12-30 21:16] LABS: ALT 53 U/L (16-63); AST 33 U/L (15-37); Albumin 3.6 g/dL (3.4-5.0); Alkaline Phosphatase 57 U/L (46-116); Anion Gap 6.4 mmol/L (3-11); BUN 13 mg/dL (7-18); Bilirubin, Total 0.39 mg/dL (0.2-1.0); CO2 28.6 mmol/L (21.0-32.0); Calcium 9.2 mg/dL (8.5-10.1); Calculated LDL 129 mg/dL (<100); Chloride 106 mmol/L (98-107); Cholesterol 195 mg/dL (<200); Estimated GFR 97.58 (mL/min/1.73m2); Glucose 113 mg/dL (74-106); HDL Cholesterol 35 mg/dL (40-60); Potassium 4.8 mmol/L (3.5-5.1); Sodium 141 mmol/L (136-145); Total Protein 7.8 g/dL (6.4-8.2); Triglyceride 156 mg/dL (<150)
== END 2023-12-30 15:25 | disposition home or self-care (01) ==
LOC: NCHCN 15:24
PROVIDERS: PCP Physician Assistant Medical; Visit Provider Physician Assistant Medical
DX: E66.9 Obesity, unspecified (principal); K76.0 Fatty (change of) liver, not elsewhere classified
CPT/HCPCS: 80053; 80061; 83036; 85025

== ENCOUNTER 2023-12-30 21:32 | Outpatient (REF) | payer BC, SELFPAY ==
[2023-12-30 22:58] LABS: POTASSIUM,URINE RANDOM 46.5 mmol/L; Sodium, Urine 138 mmol/L
[2023-12-30 23:00] LABS: Creatinine,Urine 174.48 mg/dL
[2023-12-30 23:02] LABS: Creatinine,24hr Ur 3.32 g/24hr (0.95-2.49); Total Volume 1900 ml
[2023-12-30 23:03] LABS: CLEAVED CELLS 262 mmol/24h (40-220); SAMPLE LIPEMIA CHECK 1900 ml; Total Volume 1900 ml
[2023-12-31 18:17] LABS: Timed Urine Volume 1900 mL; Urea Nitrogen Random Urine 1112 mg/dL (See Note); Urean Nitrogen Urine 24hr 21 g/24hrs (12-20)
[2024-01-01 09:53] LABS: Calcium Urine 12.8 mg/dL (See Note); Calcium Urine 24 hr 243 mg/24hr (100-300); Timed Urine Volume 1900 mL
[2024-01-01 09:58] LABS: Timed Urine Volume 1900 mL; Uric Acid Urine 60.1 mg/dL (See Note); Uric Acid Urine 24hr 1142 mg/24hrs (250-750)
[2024-01-02 12:20] LABS: Citrate Excretion, 24hr, U 743 mg/24 h (292 - 1191); Urine Volume 1900 mL
[2024-01-02 15:12] LABS: Oxalate, U 35.2 mg/24 h (9.7 - 40.5); Urine Volume 1900 mL
== END 2023-12-30 21:33 | disposition home or self-care (01) ==
LOC: LBN 21:32
PROVIDERS: PCP Physician Assistant Medical; Visit Provider Nurse Practitioner Gerontology
DX: Z87.442 Personal history of urinary calculi (principal); N20.0 Calculus of kidney
CPT/HCPCS: 82507; 81050; 82340; 82570; 83945; 84133; 84300; 84540; 84560

== ENCOUNTER 2025-03-01 11:04 | Outpatient (REF) | payer BC, SELFPAY ==
[2025-03-01 15:55] LABS: HCT 45.5 % (40.0-50.0); HGB 14.6 g/dL (13.5-17.5); MCH 27.1 pg (27.0-33.0); MCHC 32.1 % (32.0-36.0); MCV 84 fL (80-95); MPV 11.9 fL (8.0-11.0); Platelet Count 241 10^3/uL (130-400); RBC 5.39 10^6/uL (4.36-5.78); RDW 13.6 % (11.8-14.1); RDW-SD 42.2 fL; WBC 6.95 10^3/uL (4.4-10.8)
[2025-03-01 16:12] LABS: Hemoglobin A1C 5.5 % (<5.7)
[2025-03-01 16:31] LABS: ALT 36 U/L (16-63); AST 16 U/L (15-37); Albumin 3.6 g/dL (3.4-5.0); Alkaline Phosphatase 63 U/L (46-116); Anion Gap 10.0 mmol/L (3-11); BUN 12 mg/dL (7-18); Bilirubin, Total 0.3 mg/dL (0.2-1.0); CO2 24.0 mmol/L (21.0-32.0); Calcium 8.7 mg/dL (8.5-10.1); Calculated LDL 135 mg/dL (<100); Chloride 105 mmol/L (98-107); Cholesterol 195 mg/dL (<200); Estimated GFR 110.04 (mL/min/1.73m2); Glucose 112 mg/dL (74-106); HDL Cholesterol 39 mg/dL (>or=40); Potassium 4.6 mmol/L (3.5-5.1); Sodium 139 mmol/L (136-145); Total Protein 7.1 g/dL (6.4-8.2); Triglyceride 109 mg/dL (<150)
== END 2025-03-01 11:05 | disposition home or self-care (01) ==
LOC: NCHCN 11:04
PROVIDERS: PCP Physician Assistant Medical; Visit Provider Physician Assistant Medical
DX: E11.9 Type 2 diabetes mellitus without complications (principal); E66.813 Obesity, class 3; Z68.41 Body mass index [BMI] 40.0-44.9, adult; K76.0 Fatty (change of) liver, not elsewhere classified
CPT/HCPCS: 80053; 80061; 85027; 83036